=== PATIENT | female | born 1950 | race Caucasian/White ===

== ENCOUNTER 2016-10-30 19:46 | Emergency (ER) | payer MEDICARE, MEDICAID ==
[2016-10-30 21:30] LABS: HEMATOCRIT 39.1 % (35.0-47.0); HEMOGLOBIN 12.2 gm/dl (11.6-16.0); MEAN CELL VOLUME 94.9 fl (81-97); MEAN CORPUSCULAR HEMOGLOBIN 29.6 pg (27-33); MEAN CORPUSCULAR HGB CONC 31.2 g/dl (32-36); PLATELET COUNT 289 K/uL (130-400); RED BLOOD COUNT 4.12 M/uL (3.80-5.40); RED CELL DISTRIBUTION WIDTH 15.3 % (11.5-14.5); WHITE BLOOD COUNT W/O DIFF 11.7 K/uL (4.2-12.2)
[2016-10-30 21:45] LABS: ARTERIAL BLOOD GAS PCO2 46.5 mmHg (35-48)
[2016-10-30 21:50] LABS: ALLEN TEST PASS
[2016-10-30 22:00] LABS: ALB/GLOB RATIO 1.4 (1.1-1.8); ALBUMIN 4.7 gm/dL (3.5-5.0); ANION GAP 16.1 (7-16); BILIRUBIN,TOTAL 0.57 mg/dL (0.2-1.3); CARBON DIOXIDE 23.9 mmol/L (22-30); CREATININE 2.7 mg/dL (0.52-1.04)
[2016-10-30 22:12] LABS: TROPONIN I < 0.012 ng/mL (0.00-0.034)
[2016-10-30] MEDS ORDERED: GABAPENTIN 300 MG CAPSULE PO SCH (23:45)
[2016-10-30] MEDS ORDERED: QUETIAPINE FUMARATE 100 MG TABLET PO ONE (23:57)
[2016-10-31] MEDS ORDERED: ISOSORBIDE MONONITRATE 30 MG TAB.ER.24H PO SCH
--- NOTE | 2016-10-31 00:08 | Emergency Department Record ---
History of Present Illness - General Chief Complaint: Shortness of breath Stated Complaint: SWOLLEN FEET/LEGS,WEAK, Time Seen by Provider: 10/30/16 20:41 Source: Patient, Family Mode of Arrival: Ambulatory Limitations: No limitations - History of Present Illness Initial Comments: pt was brought in by daughter for increased confusion, sleeping all day, swelling of feet and feeling out of it. last time pt felt this way she had a low sodium. pt denies any changes in her meds and denies any new meds. pt wears 3l oxygen at all times because of pulmonary fibrosis MD Complaint: Cough, Shortness of breath Onset/Timin -: Days(s) Radiation: Back, Other Severity scale (1-10): 5 Quality: Stabbing Consistency: Constant Improves With: Rest Worsens With: Medication Known History Of: Congestive heart failure, COPD, Diabetes Associated Symptoms: Denies other symptoms Treatments Prior to Arrival: Bronchodilator, Oxygen - Related Data Home Oxygen Therapy: Yes Home Oxygen Amount: 3 Liters Home Medications Medication Instructions Recorded Confirmed Last Taken Aspirin 81 mg PO DAILY 10/13/13 10/31/16 1 Day Ago ~03/01/16 Bumetanide [Bumex] 3 mg PO DAILY 10/13/13 10/31/16 1 Day Ago ~03/01/16 Docusate Sodium [Colace] 100 mg PO BID 10/13/13 10/31/16 1 Day Ago ~03/01/16 Fluoxetine HCl [Prozac] 60 mg PO DAILY 10/13/13 10/31/16 1 Day Ago ~03/01/16 Folic Acid 1 mg PO DAILY 10/13/13 10/31/16 1 Day Ago ~03/01/16 Gabapentin [Neurontin] 200 mg PO BID 10/13/13 10/31/16 1 Day Ago ~03/01/16 Levothyroxine Sodium [Levoxyl] 125 mcg PO DAILY 10/13/13 10/31/16 1 Day Ago ~03/01/16 Polyethylene Glycol 3350 [Miralax] 17 gm PO DAILY 10/13/13 10/31/16 1 Day Ago ~03/01/16 Potassium Chloride [K-Tab ER] 30 meq PO DAILY 10/13/13 10/31/16 1 Day Ago ~03/01/16 Quetiapine Fumarate [Seroquel] 300 mg PO QHS 10/13/13 10/31/16 1 Day Ago ~03/01/16 Spironolactone [Aldactone] 25 mg PO TID 10/13/13 10/31/16 1 Day Ago ~03/01/16 Zolpidem Tartrate [Ambien] 12.5 mg PO QHS 10/13/13 10/31/16 1 Day Ago ~03/01/16 Hydrocodone/Acetaminophen [[place] 2 tab PO QID PRN 06/09/14 10/31/16 1 Day Ago 5-325 Tablet] ~03/01/16 Isosorbide Mononitrate [Imdur] 30 mg PO DAILY 06/09/14 10/31/16 1 Day Ago ~03/01/16 Midodrine HCl 2.5 mg PO TID 06/09/14 10/31/16 1 Day Ago ~03/01/16 Atorvastatin Calcium [Lipitor] 20 mg PO DAILY 06/26/14 10/31/16 1 Day Ago ~03/01/16 Omeprazole [Prilosec] 20 mg PO BID 06/26/14 10/31/16 1 Day Ago ~03/01/16 Carvedilol [Coreg] 3.125 mg PO BID 05/20/15 10/31/16 1 Day Ago ~03/01/16 Gabapentin [Neurontin] 400 mg PO DAILY 05/20/15 10/31/16 1 Day Ago ~03/01/16 Metoprolol Succinate [Toprol Xl] 50 mg PO DAILY 05/20/15 10/31/16 1 Day Ago ~03/01/16 Metformin HCl [Metformin HCl ER] 1,000 mg PO BID 03/02/16 10/31/16 1 Day Ago ~03/01/16 Fluticasone/Vilanterol [Breo 1 puff INH DAILY 10/31/16 10/31/16 Unknown Ellipta 200-25 Mcg INH] Umeclidinium [place] [Incruse 1 puff INH DAILY 10/31/16 10/31/16 Unknown Ellipta] Allergies Allergy/AdvReac Type Severity Reaction Status Date / Time codeine Allergy Unknown RASH Verified 10/30/16 20:00 latex AdvReac RASH Verified 10/30/16 20:00 Travel Screening - Travel/Exposure Within Last 30 Days Have you traveled within the last 30 days?: No - Travel/Exposure Within Last Year Have you traveled outside the [place] in the last year?: No - Additonal Travel Details Have you been exposed to anyone with a communicable illness?: No - Travel Symptoms Symptom Screening: None Review of Systems Reviewed: No additional complaints except as noted below Constitutional: Reports: As per HPI. Denies: Chills, Fever, Malaise, Night sweats, Weakness, Weight change Eyes: Reports: As per HPI. Denies: Eye discharge, Eye pain, Photophobia, Vision change ENT: Reports: As per HPI. Denies: Congestion, Dental pain, Ear pain, Epistaxis , Hearing loss, Throat pain Respiratory: Reports: As per HPI. Denies: Cough, Dyspnea, Hemoptysis, Stridor, Wheezes Cardiovascular: Reports: As per HPI. Denies: Arrhythmia, Chest pain, Dyspnea on exertion, Edema, Murmurs, Orthopnea, Palpitations, Paroxysmal nocturnal dyspnea, Rheumatic Fever, Syncope Endocrine: Reports: As per HPI. Denies: Fatigue, Heat or cold intolerance, Polydipsia, Polyuria Gastrointestinal: Reports: As per HPI. Denies: Abdominal pain, Constipation, Diarrhea, Hematemesis, Hematochezia, Melena, Nausea, Vomiting Genitourinary: Reports: As per HPI. Denies: Abnormal menses, Discharge, Dyspareunia, Dysuria, Frequency, Hematuria, Incontinence, Retention, Urgency Musculoskeletal: Reports: As per HPI. Denies: Arthralgia, Back pain, Gout, Joint swelling, Myalgia, Neck pain Skin: Reports: As per HPI. Denies: Bruising, Change in color, Change in hair/ nails, Lesions, Pruritus, Rash Neurological: Reports: As per HPI. Denies: Abnormal gait, Confusion, Headache, Numbness, Paresthesias, Seizure, Tingling, Tremors, Vertigo, Weakness Psychiatric: Reports: As per HPI. Denies: Anxiety, Auditory hallucinations, Depression, Homicidal thoughts, Suicidal thoughts, Visual hallucinations Hematological/Lymphatic: Reports: As per HPI. Denies: Anemia, Blood Clots, Easy bleeding, Easy bruising, Swollen glands Past Medical History - SOCIAL HISTORY Smoking Status: Former smoker Alcohol Use: Rare - RESPIRATORY Hx Respiratory Disorders: Yes Hx Bronchitis: Yes Hx COPD: Yes Comment:: pulmonary fibrosis - CARDIOVASCULAR Hx Cardio Disorders: Yes Hx Cardiac Cath: Yes Hx Chest Pain: Yes Hx CHF: Yes Hx Heart Attack: Yes (2 STENTS) - NEURO Hx Neuro Disorders: Yes Hx Dizziness: Yes Hx Seizures: Yes Hx TIA: Yes - GI Hx GI Disorders: Yes Hx Reflux: Yes Hx Wt Loss/Wt Gain: Yes (loss 12# past month) Comment:: Barretts esophagus - Hx Genitourinary Disorders: Yes Comment:: bladder sling - ENDOCRINE Hx Endocrine Disorders: Yes Hx Diabetes: Yes Hx Thyroid Disease: Yes (hypo) - MUSCULOSKELETAL Hx Musculoskeletal Disorders: Yes Hx Fibromyalgia: Yes - PSYCH Hx Psych Problems: Yes Hx Anxiety: Yes Hx Depression: Yes Comment:: Bipolar - HEMATOLOGY/ONCOLOGY Hx Hematology/Oncology Disorders: No Hx Blood Transfusions: No Family Medical History Any Significant Family History?: No Hx Anxiety: Mother Hx Cancer: Father, Mother Hx Depression: Mother Hx Diabetes: Mother Hx Heart Disease: Father Hx Resp Disorders: Father Hx Stroke: Mother Physical Exam - General General Appearance: Alert, Oriented x3, Cooperative, Mild distress - Head Head exam: Normal inspection - Eye Eye exam: Normal appearance, PERRL, EOMI Pupils: Normal accommodation - ENT ENT exam: Normal exam, Mucous membranes moist, Normal external ear exam, Normal orophraynx, TM's normal bilaterally Ear exam: Normal external inspection. negative: External canal tenderness Nasal Exam: Normal inspection. negative: Discharge, Sinus tenderness Mouth exam: Normal external inspection, Tongue normal Teeth exam: Normal inspection. negative: Dental caries Throat exam: Normal inspection. negative: Tonsillar erythema, Tonsillar exudate - Neck Neck exam: Normal inspection, Full ROM. negative: Tenderness - Respiratory Respiratory exam: Normal lung sounds bilaterally. negative: Respiratory distress - Cardiovascular Cardiovascular Exam: Normal rhythm, Normal heart sounds, Tachycardia - GI/Abdominal GI/Abdominal exam: Soft, Normal bowel sounds. negative: Tenderness - Rectal Rectal exam: Deferred - exam: Deferred - Extremities Extremities exam: Normal inspection, Full ROM, Normal capillary refill, Pedal edema. negative: Tenderness - Back Back exam: Reports: Normal inspection, Full ROM. Denies: Muscle spasm, Rash noted, Tenderness - Neurological Neurological exam: Alert, CN II-XII intact, Normal gait, Oriented X3 - Psychiatric Psychiatric exam: Normal affect, Normal mood - Skin Skin exam: Dry, Intact, Normal color, Warm Course Vital Signs 10/30/16 10/30/16 19:59 22:31 Temperature 98.4 F 98.5 F Pulse Rate [ 106 H 91 H Pulse Ox Probe] Respiratory 20 18 Rate Blood Pressure 121/63 95/68 [Left Arm] Pulse Ox 83 L 95 Medical Decision Making - Lab Data Result diagrams: 10/30/16 20:02 10/30/16 20:02 Lab Results 10/30/16 10/30/16 10/30/16 Range/Units 20:02 20:02 20:02 WBC 11.7 (4.2-12.2) K/uL RBC 4.12 (3.80-5.40) M/uL Hgb 12.2 (11.6-16.0) gm/dl Hct 39.1 (35.0-47.0) % MCV 94.9 (81-97) fl MCH 29.6 (27-33) pg MCHC 31.2 L (32-36) g/dl RDW 15.3 H (11.5-14.5) % Plt Count 289 (130-400) K/uL MPV 12.0 H (7.4-10.4) fl Neutrophils % 61.0 (47-80) % Eosinophils % Not Reportable Basophils % Not Reportable Lymphocytes 27.0 (16-45) % Monocytes 10.0 H (0-9) % Metamyelocytes 1.0 % ESR 34 H (0-30) mm/hr Eosinophil Count 1.0 (0-6) % Puncture Site pCO2 (35-48) mmHg pO2 (83-108) mmHg HCO3 Oxyhemoglobin ABG pH (7.35-7.45) ABG O2 Saturation ABG Base Excess Toan Test Carboxyhemoglobin Methemoglobin Actual Respiration Rate (10-18) /MIN FiO2 (21-21) % Sodium 134 L (136-145) mmol/L Potassium 4.4 (3.5-5.1) mmol/L Chloride 94 L (98-107) mmol/L Carbon Dioxide 23.9 (22-30) mmol/L Anion Gap 16.1 H (7-16) BUN 47 H (7-17) mg/dL Creatinine 2.7 H (0.52-1.04) mg/dL Estimated GFR 19 ml/min Random Glucose 183 H (70-110) mg/dL Calcium 9.2 (8.5-10.1) mg/dL Total Bilirubin 0.57 (0.2-1.3) mg/dL AST 23 (14-36) U/L ALT 27 (9-52) U/L Alkaline Phosphatase 115 (38-126) U/L Troponin I (0.00-0.034) ng/mL NT-Pro-B Natriuret Pep (<125) pg/mL Total Protein 8.0 (6.3-8.2) gm/dL Albumin 4.7 (3.5-5.0) gm/dL Globulin 3.3 (1.4-4.8) gm/dL Albumin/Globulin Ratio 1.4 (1.1-1.8) 10/30/16 10/30/16 Range/Units 20:02 21:39 WBC (4.2-12.2) K/uL RBC (3.80-5.40) M/uL Hgb (11.6-16.0) gm/dl Hct (35.0-47.0) % MCV (81-97) fl MCH (27-33) pg MCHC (32-36) g/dl RDW (11.5-14.5) % Plt Count (130-400) K/uL MPV (7.4-10.4) fl Neutrophils % (47-80) % Eosinophils % Basophils % Lymphocytes (16-45) % Monocytes (0-9) % Metamyelocytes % ESR (0-30) mm/hr Eosinophil Count (0-6) % Puncture Site Left wrist pCO2 46.5 (35-48) mmHg pO2 60.0 L (83-108) mmHg HCO3 Not Reportable Oxyhemoglobin Not Reportable ABG pH 7.40 (7.35-7.45) ABG O2 Saturation Not Reportable ABG Base Excess Not Reportable Toan Test Pass Carboxyhemoglobin Not Reportable Methemoglobin Not Reportable Actual Respiration Rate 28.0 H (10-18) /MIN FiO2 32.0 H (21-21) % Sodium (136-145) mmol/L Potassium (3.5-5.1) mmol/L Chloride (98-107) mmol/L Carbon Dioxide (22-30) mmol/L Anion Gap (7-16) BUN (7-17) mg/dL Creatinine (0.52-1.04) mg/dL Estimated GFR ml/min Random Glucose (70-110) mg/dL Calcium (8.5-10.1) mg/dL Total Bilirubin (0.2-1.3) mg/dL AST (14-36) U/L ALT (9-52) U/L Alkaline Phosphatase (38-126) U/L Troponin I < 0.012 (0.00-0.034) ng/mL NT-Pro-B Natriuret Pep 9200.00 H (<125) pg/mL Total Protein (6.3-8.2) gm/dL Albumin (3.5-5.0) gm/dL Globulin (1.4-4.8) gm/dL Albumin/Globulin Ratio (1.1-1.8) Disposition Disposition: Transfer Clinical Impression: Hypoxia Renal failure Qualifiers: Renal failure chronicity: acute Acute renal failure type: unspecified Qualified Code(s): N17.9 - Acute kidney failure, unspecified CHF (congestive heart failure) Qualifiers: Congestive heart failure type: unspecified congestive heart failure type Congestive heart failure chronicity: acute on chronic Qualified Code(s): I50.9 - Heart failure, unspecified Disposition: Acute Care Hospital Transfer Transfer To: [facility] Reason For Transfer: pts physician and nephrology Accepting Physician: awa Mckeon Discussed w/Accepting Physician: 01:36 Forms: Patient Portal Access
[2016-10-31 00:49] LABS: URINE APPEARANCE CLEAR; URINE BILIRUBIN NEGATIVE (NEGATIVE); URINE BLOOD NEGATIVE (NEGATIVE); URINE COLOR YELLOW; URINE GLUCOSE (UA) NEGATIVE (NEGATIVE); URINE KETONE NEGATIVE (NEGATIVE); URINE LEUKOCYTE ESTERASE NEGATIVE (NEGATIVE); URINE NITRITE NEGATIVE (NEGATIVE); URINE PROTEIN NEGATIVE (NEGATIVE); URINE UROBILINOGEN 0.2 E.U./dL (0.20 - 1.00)
--- NOTE | 2016-11-04 07:27 | RADIOLOGY REPORT ---
EXAM: CHEST, TWO VIEWS HISTORY: PATIENT HAS SWELLING OF LEGS, SLURRED SPEECH. TECHNIQUE: Two views of the chest were obtained. Comparison: Chest x-ray 12/23/05. FINDINGS: Prominence and ill definition of the pulmonary vascular markings consistent with mild to moderate interstitial pulmonary edema. The cardiac silhouette is moderately enlarged. The diaphragm and osseous structures are unremarkable. IMPRESSION: MILD TO MODERATE CHF. JOB NUMBER: [id number] MTDD
== END 2016-10-31 03:05 | disposition short-term general hospital (02) ==
LOC: ER 19:46
DX: N17.9 Acute kidney failure, unspecified (principal); I50.9 Heart failure, unspecified; J44.9 Chronic obstructive pulmonary disease, unspecified; E11.9 Type 2 diabetes mellitus without complications; Z79.84 Long term (current) use of oral hypoglycemic drugs; I25.2 Old myocardial infarction; Z87.891 Personal history of nicotine dependence
CPT/HCPCS: 36600; 71020; 80053; 81003; 82375; 82803; 83880; 84484; 85027; 85651; 99285

== ENCOUNTER 2017-01-12 11:59 | Inpatient (IN) | payer MEDICARE, MEDICAID ==
[2017-01-12] MEDS ORDERED: COLCHICINE 0.6 MG TABLET PO PRN (16:30)
[2017-01-12] MEDS ORDERED: NITROGLYCERIN 0.4MG SL TABLET #25 BTL SL PRN (16:32)
[2017-01-12] MEDS ORDERED: ALBUTEROL HFA 8 GM INHALER INH PRN (16:34)
[2017-01-12] MEDS ORDERED: PNEUM 13-VAL/PF 0.5 ML IM ONE (16:53)
[2017-01-12] MEDS: CLONAZEPAM 1MG TABLET PO SCH ×2 (16:59→21:15)
[2017-01-12] MEDS: GABAPENTIN 100 MG CAPSULE PO SCH ×2 (16:59→21:14)
[2017-01-12] MEDS: HYDROCODONE/APAP 10/325 TABLET PO PRN (16:59)
[2017-01-12] MEDS: GABAPENTIN 300 MG CAPSULE PO SCH ×2 (16:59→21:15)
[2017-01-12] MEDS: NOVOLOG FLEXPEN (INSULIN ASPART) 100 UNITS/ML SQ SCH (18:31)
[2017-01-12] MEDS: QUETIAPINE FUMARATE 100 MG TABLET PO SCH (21:13)
[2017-01-12] MEDS: FOLIC ACID 1 MG TABLET PO SCH (21:14)
[2017-01-12] MEDS: ATORVASTATIN 20 MG TABLET PO SCH (21:15)
[2017-01-12] MEDS: POTASSIUM CHLORIDE 10 MEQ TAB PO SCH (21:15)
[2017-01-12] MEDS: DOCUSATE SODIUM 100 MG CAPSULE PO SCH (21:15)
[2017-01-12] MEDS: POTASSIUM CHLORIDE 20 MEQ TABLET PO SCH (21:15)
[2017-01-12] MEDS: ZOLPIDEM TARTRATE 5 MG TABLET PO SCH (21:15)
[2017-01-12] MEDS: CARVEDILOL 3.125 MG TABLET PO SCH (21:15)
[2017-01-12] MEDS: ISOSORBIDE MONONITRATE 30 MG TAB.ER.24H PO SCH (21:17)
[2017-01-12] MEDS: ASPIRIN 81 MG TABEC PO SCH (21:20)
--- NOTE | 2017-01-13 05:24 | History & Physical ---
History of Present Illness - Date Date of Service for History & Physical: 01/13/17 - History of Present Illness Admitting Diagnosis: Deconditioning due to COPD exacerbation General - Cognitive Patterns Orientation: Oriented x3 - Communication Preferred Language?: Stateless Recycling Assistant Required: No Level of Education: [employer] Preferred Method of Learning: Seeing, Doing Comprehension Ability: No Impairment Able to Read: Yes Able to Write: Yes Select best description of speech pattern: Clear Speech Ability to express ideas and wants: Understood Understanding verbal content: Understands - Psychosocial Well-Being Usual Living Arrangement: Alone - Physical Functioning Activity Level: Up as tolerated Turning: Self ad chris ROM Ability: Within Normal Limits Assistive Devices: None Ambulation Ability: Needs Assist Bed Mobility: Needs Assist Transfer Ability: Needs Assist Bathing Ability: Needs Assist Personal Hygiene: Needs Assist Dressing Ability: Needs Assist Eating (Feeding) Ability: Independent Toileting Ability: Needs Assist Administer Own Medication: Needs Assist - Continence Bowel Pattern: Constipated, No Bowel Movement Bladder Pattern: Normal - Dental Status Unable to examine: No Broken or loosely fitting full or partial dentures: No No natural teeth or tooth fragment(s) (edentulous): Yes Abnormal mouth tissue (ulcers, masses, oral lesions, etc.): No Obvious or likely cavity or broken natural teeth: No Inflamed or bleeding gums or loose natural teeth: No Mouth/facial pain, discomfort or difficulty chewing: No - Nutrition Screening Poor oral intake > 1 week: No Unplanned weight loss in specified time frame: No Nutrition Support via tube feedings or parenteral nutrition: No Pressure Ulcer: No Significantly underweight define as BMI <18.5 kg/m2: No Albumin <2.5mg/dL: No Persistent nausea/vomiting/diarrhea >3 days: No Difficulty chewing/swallowing/mouth sores: No Admitting Diagnosis: Yes Nutrition Risk Score: Low Risk Past Medical History - SOCIAL HISTORY Smoking Status: Former smoker Alcohol Use: Rare - SURGICAL HISTORY Past Surgical History: hysterectomy. gallbladder. stents in subclavian - RESPIRATORY Hx Respiratory Disorders: Yes Hx Bronchitis: Yes Hx COPD: Yes Comment:: pulmonary fibrosis - CARDIOVASCULAR Hx Cardio Disorders: Yes Hx Cardiac Cath: Yes Hx Chest Pain: Yes Hx CHF: Yes Hx Heart Attack: Yes (2 STENTS) - NEURO Hx Neuro Disorders: Yes Hx Dizziness: Yes Hx Neuropathy: Yes (diabetic neuropathy in feet and hands) Hx Seizures: Yes Hx TIA: Yes - GI Hx GI Disorders: Yes Hx Reflux: Yes Comment:: Barretts esophagus - Hx Genitourinary Disorders: Yes Comment:: bladder sling - ENDOCRINE Hx Endocrine Disorders: Yes Hx Diabetes: Yes Hx Thyroid Disease: Yes (hypo) - MUSCULOSKELETAL Hx Musculoskeletal Disorders: Yes Hx Fibromyalgia: Yes Hx Gout: Yes - PSYCH Hx Psych Problems: Yes Hx Anxiety: Yes Hx Depression: Yes Comment:: Bipolar - HEMATOLOGY/ONCOLOGY Hx Hematology/Oncology Disorders: No Hx Blood Transfusions: No Family Medical History Any Significant Family History?: Yes Hx Anxiety: Mother Hx Cancer: Father, Mother Hx Depression: Mother Hx Diabetes: Mother Hx Heart Disease: Father Hx Resp Disorders: Father Hx Stroke: Mother H&P Meds/Allergies - Allergies Allergies: Allergies Allergy/AdvReac Type Severity Reaction Status Date / Time codeine Allergy Unknown RASH Verified 10/30/16 20:00 latex AdvReac RASH Verified 10/30/16 20:00 - Home Medications Home Medications Medication Instructions Recorded Confirmed Last Taken Aspirin 81 mg PO QHS 10/13/13 01/12/17 1 Day Ago ~03/01/16 Bumetanide [Bumex] 1 mg PO DAILY 10/13/13 01/12/17 1 Day Ago ~03/01/16 Docusate Sodium [Colace] 100 mg PO BID 10/13/13 01/12/17 1 Day Ago ~03/01/16 Fluoxetine HCl [Prozac] 60 mg PO DAILY 10/13/13 01/12/17 1 Day Ago ~03/01/16 Folic Acid 1 mg PO QHS 10/13/13 01/12/17 1 Day Ago ~03/01/16 Levothyroxine Sodium [Levoxyl] 125 mcg PO DAILY 10/13/13 01/12/17 1 Day Ago ~03/01/16 Potassium Chloride [K-Tab ER] 30 meq PO QHS 10/13/13 01/12/17 1 Day Ago ~03/01/16 Quetiapine Fumarate [Seroquel] 300 mg PO QHS 10/13/13 01/12/17 1 Day Ago ~03/01/16 Isosorbide Mononitrate [Imdur] 30 mg PO QHS 06/09/14 01/12/17 1 Day Ago ~03/01/16 Atorvastatin Calcium [Lipitor] 20 mg PO QHS 06/26/14 01/12/17 1 Day Ago ~03/01/16 Omeprazole [Prilosec] 20 mg PO BID 06/26/14 01/12/17 1 Day Ago ~03/01/16 Carvedilol [Coreg] 3.125 mg PO BID 05/20/15 01/12/17 1 Day Ago ~03/01/16 Gabapentin [Neurontin] 400 mg PO TID 05/20/15 01/12/17 1 Day Ago ~03/01/16 Umeclidinium [place] [Incruse 1 puff INH DAILY 10/31/16 01/12/17 Unknown Ellipta] Albuterol Sulfate [Proventil Hfa] 1 - 2 puff INH .EVERY 4-6 HOURS PRN 01/12/17 01/12/17 Unknown Cholecalciferol (Vitamin D3) 50,000 unit PO WEEKLY 01/12/17 01/12/17 Unknown [Vitamin D] Clonazepam [Klonopin] 1 mg PO TID 01/12/17 01/12/17 Unknown Colchicine [Colcrys] 0.6 mg PO BID 01/12/17 01/12/17 Unknown Eszopiclone [Lunesta] 1 mg PO QHS 01/12/17 01/12/17 Unknown Ferrous Sulfate [Iron] 325 mg PO DAILY 01/12/17 01/12/17 Unknown Fluticasone/Vilanterol [Breo 1 each IH DAILY 01/12/17 01/12/17 Unknown Ellipta 100-25 Mcg INH] Hydrocodone/Acetaminophen [[place] 1 tab PO Q6H PRN 01/12/17 01/12/17 Unknown 10mg/325mg] Linagliptin [Tradjenta] 5 mg PO DAILY 01/12/17 01/12/17 Unknown Methylphenidate HCl 5 mg PO BID 01/12/17 01/12/17 Unknown Nitroglycerin 0.4 mg SL ASDIR PRN 01/12/17 01/12/17 Unknown - Active Medications Active Medications: Current Medications Hydrocodone Bitart/Acetaminophen ([place] 10mg/325mg) 1 each PO Q6H PRN PRN Reason: Pain - General Last Admin: 01/12/17 16:59 Dose: 1 each Albuterol Sulfate (Ventolin Hfa) 2 puff INH Q4H PRN PRN Reason: SHORTNESS OF BREATH/WHEEZING Aspirin (Ecotrin (Ec)) 81 mg PO QHS [facility] Last Admin: 01/12/17 21:20 Dose: 81 mg Atorvastatin Calcium (Lipitor) 20 mg PO QHS [facility] Last Admin: 01/12/17 21:15 Dose: 20 mg Bumetanide (Bumex) 1 mg PO DAILY [facility] Carvedilol (Coreg) 3.125 mg PO BID [facility] Last Admin: 01/12/17 21:15 Dose: 3.125 mg Clonazepam (Klonopin) 1 mg PO TID [facility] Last Admin: 01/12/17 21:15 Dose: 1 mg Colchicine (Colcrys) 0.6 mg PO BID PRN PRN Reason: GOUT Docusate Sodium (Colace) 100 mg PO BID [facility] Last Admin: 01/12/17 21:15 Dose: 100 mg Ferrous Sulfate (Iron) 325 mg PO DAILY [facility] Fluoxetine HCl (Prozac) 60 mg PO DAILY [facility] Folic Acid () 1 mg PO QHS [facility] Last Admin: 01/12/17 21:14 Dose: 1 mg Gabapentin (Neurontin) 300 mg PO TID [facility] Last Admin: 01/12/17 21:15 Dose: 300 mg Gabapentin (Neurontin) 100 mg PO TID [facility] Last Admin: 01/12/17 21:14 Dose: 100 mg Insulin Aspart (Novolog Flexpen) 1 unit SQ TIDINS [facility] PRN Reason: Protocol Last Admin: 01/12/17 18:31 Dose: 6 unit Isosorbide Mononitrate (Imdur) 30 mg PO QHS [facility] Last Admin: 01/12/17 21:17 Dose: 30 mg Levothyroxine Sodium (Synthroid) 125 mcg PO 1200 [facility] Nitroglycerin (Nitrostat 0.4mg) 0.4 mg SL Q5MIN PRN PRN Reason: CHEST PAIN Pantoprazole Sodium (Protonix) 40 mg PO BIDAC [facility] Patient Own Med: (Methylphenidate 5 Mg) 1 each PO 0730,1130 [facility] Patient Own Med: Tradjenta ( Linagliptin) 5 Mg 1 each PO DAILY [facility] Patient Own Med: Ergocalciferol 50, 000 Iu 1 each PO WEEKLY [facility] Potassium Chloride (Klor-Con) 10 meq PO QHS [facility] Last Admin: 01/12/17 21:15 Dose: 10 meq Potassium Chloride (Klor-Con) 20 meq PO QHS [facility] Last Admin: 01/12/17 21:15 Dose: 20 meq Prednisone (Prednisone 20mg) 40 mg PO DAILYWM [facility] Stop: 01/13/17 08:01 Prednisone (Prednisone 20mg) 20 mg PO DAILYWM [facility] Stop: 01/19/17 08:01 Prednisone (Prednisone 10mg) 30 mg PO DAILYWM [facility] Stop: 01/16/17 08:01 Prednisone (Prednisone 10mg) 10 mg PO DAILYWM [facility] Stop: 01/22/17 08:01 Quetiapine Fumarate (Seroquel) 300 mg PO QHS [facility] Last Admin: 01/12/17 21:13 Dose: 300 mg Zolpidem Tartrate (Ambien) 5 mg PO QHS [facility] Last Admin: 01/12/17 21:15 Dose: 5 mg Physical Exam - Vital Signs Vital Signs: Vital Signs - Last 24 Hrs Temp Pulse Resp BP Pulse Ox 01/12/17 20:00 98.2 F 82 18 96/65 94 L 01/12/17 17:30 18 01/12/17 15:40 98.3 F 90 18 96/55 93 L H&P Results - Labs Labs Last 24 Hours: Laboratory Results - last 24 hr 01/12/17 01/12/17 17:16 21:16 POC Glucose 253 H 213 H Discharge Potential - Discharge Needs Community Services Used Prior to Admission: Home Health Aide Patient Discharge Plan Description: Return Home Community Services Needed at Discharge: Home Health Aide, Home Health Nurse, Occupational Therapy, Oxygen Therapy, Physical Therapy, Respiratory Therapy, Pathways to Better Health Plan - Swing Bed Certification Initial Certification Due: 01/12/17 14 Day Re-Cert Due: 01/26/17 44 Day Re-Cert Due: 02/25/17 74 Day Re-Cert Due: 03/27/17
[2017-01-13] MEDS ORDERED: PREDNISONE 20 MG TAB PO SCH (08:00)
--- NOTE | 2017-01-13 08:02 | Rehab Evaluation ---
Patient Information - Patient Information Diagnosis: deconditioning due to COPD exacerbation Ordered Treatment: OT Evaluate and Treat Status: Initial Evaluation Surgery: No History: Detail (Pt admitted on 01/12/17 to swing bed from [facility] Past Medical/Surgical Hx: PAST MEDICAL/SURGICAL HISTORY Past Surgical History hysterectomy gallbladder stents in subclavian PMH - Respiratory Hx Respiratory Disorders Yes Hx Bronchitis Yes Hx Chronic Obstructive Yes Pulmonary Disease (COPD) Comment: pulmonary fibrosis PMH - Cardiovascular Hx Cardiovascular Disorders Yes Hx Cardiac Catheterization Yes Hx Chest Pain Yes Hx Congestive Heart Failure Yes Hx Heart Attack Yes: 2 STENTS Hx Transient Ischemic Attacks Yes (TIA) PMH - Neuro Hx Neurological Disorders Yes Hx Dizziness Yes Hx Neuropathy Yes: diabetic neuropathy in feet and hands Hx Seizures Yes Hx Transient Ischemic Attacks Yes (TIA) PMH - GI Hx Gastrointestinal Disorders Yes Hx Gastroesophageal Reflux Yes Hx Weight Loss/Weight Gain Yes: loss 12# past month Comment: Barretts esophagus PMH - Hx Genitourinary Disorders Yes Comment: bladder sling PMH - Endocrine Hx Endocrine Disorders Yes Hx Diabetes Yes Hx Thyroid Disease Yes: hypo PMH - Musculoskeletal Hx Musculoskeletal Disorders Yes Hx Fibromyalgia Yes Hx Gout Yes PMH - Psych Hx Psychiatric Problems Yes Hx Anxiety Yes Hx Depression Yes Comment: Bipolar PMH - Hematology/Oncology Hx Hematology/Oncology No Disorders Premorbid Status: Detail (Pt lives alone in a 1st floor apartment, no steps to enter. She has a tub/shower combination with a seat and hand held shower, no grab bar. She usually sits to shower. She has a standard height toilet without grab bars. Prior to admission she ambulated without an assistive device. She has a person come to her house 3 x per week for house work, laundry and meals. She is Ind with preparing frozen meals. She has a 4 wheeled walker.) Social History: Detail (Pt has 2 daughers, 1 lives locally ([place]).) Precautions: [place], Fall, Other (Droplet precautions) - Time With Patient Total Time Spent With Patient (Min): 60 Treatment Procedures: Detail (OT eval low complexity) Subjective Information - Subjective Information Per Patient Objective Data - Pain Pain Present: Yes (5/10 pain in hands, feet and back) - Mental Status Patient Orientation: Oriented x3 - Visual Perception Appears within normal limits for therapeutic activities - ROM Not within normal limits (Robin UE AROM WNL except left shoulder flexion which is limited to approx. 90 degrees due to pre-existing injury.) - Strength/Tone Not within normal limits (Robin UE MMT 4/5 except left shoulder flexion which is graded 4-/5.) - Coordination Appears within normal limits for therapeutic activities - Bed Mobility Independent - Transfers Independent - Balance Balance Sitting: Good Balance Standing: Good - Sensation Intact (Pt reports robin hand pain due to neuropathy.) - Gait Detail (Pt ambulating in room Indly on 3 liters of oxygen.) - ADL's/IADL's Detail (Pt able to complete showering in sitting, doffing and donning of all clothing in sitting and standing and grooming activities Indly with 5.5 liters of oxygen. Pt was very short of breath but reports this is normal for her) Therapy Assessment - Therapy Assessment Detail (Pt presents with decreased endurance, increased shortness of breath and decreased UE strength needed for IADLS.) Problem List - Problem List Occupational Therapy Problem List: Detail (1. Decreased overall endurance needed for safe return home 2. Decreased UE strength needed for IADLs.) Goals - Goals Occupational Therapy Goals: 1. Pt will participate in UE strengthening and overall endurance activities to improve Ind and safety with IADLs. Prognosis - Prognosis Good Plan - Plan Occupational Therapy Plan: OT 2-4 times per week to address endurance, UE strength and IADLs to allow safe return home.
[2017-01-13] MEDS: NOVOLOG FLEXPEN (INSULIN ASPART) 100 UNITS/ML SQ SCH ×3 (08:13→17:57)
[2017-01-13] MEDS: UMECLIDINIUM BROMIDE (INCRUSE) 62.5MCG IH SCH (09:08)
[2017-01-13] MEDS ORDERED: BISACODYL 5 MG TABLET PO ONE (09:15)
[2017-01-13] MEDS: BREO (FLUTICASONE/VILANTEROL) 100MCG/25MCG INHALER INH SCH (09:16)
--- NOTE | 2017-01-13 09:26 | History & Physical ---
History of Present Illness - Date Date of Service for History & Physical: 01/13/17 - History of Present Illness Admitting Diagnosis: Deconditioning due to COPD exacerbation History of Present Illness: 66 yo female admitted to [facility] for weakness. PMHx of IPF, COPD, previous smoker ( 50 years, 2-3 ppd, quit 5 years ago), stage 1 diastolic heart failure, london' s esophagus, RLS, CAD, subclavian steal syndrome, DM type II, h/o TIA 20 years ago. Patient admitted 01/06-01/12 for acute hypoxic respiratory failure secondary to idiopathic pulmonary fibrosis and/or infectious process. Patient feels at baseline regarding her resp state. She's sating well on 3 L's O2 NC. Denies any SUZIE, sob, fever, chills, n/v, abd pain, blood in stool, dysuria, headache, dizziness or lightheadedness. + constipation. Lives independently here in [place]. Retired. One story home. no steps to get into the house. Has help around the house 3 days per week. PCP: Dr. Rojo Body Bumper: Dr. 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 Level of Education: [employer] Preferred Method of Learning: Seeing, Doing Comprehension Ability: No Impairment Able to Read: Yes Able to Write: Yes Select best description of speech pattern: Clear Speech Ability to express ideas and wants: Understood Understanding verbal content: Understands - Psychosocial Well-Being Usual Living Arrangement: Alone - Physical Functioning Activity Level: Up as tolerated Turning: Self ad chris ROM Ability: Within Normal Limits Assistive Devices: None Ambulation Ability: Needs Assist Bed Mobility: Needs Assist Transfer Ability: Needs Assist Bathing Ability: Needs Assist Personal Hygiene: Needs Assist Dressing Ability: Needs Assist Eating (Feeding) Ability: Independent Toileting Ability: Needs Assist Administer Own Medication: Needs Assist - Continence Bowel Pattern: Constipated, No Bowel Movement Bladder Pattern: Normal - Dental Status Unable to examine: No Broken or loosely fitting full or partial dentures: No No natural teeth or tooth fragment(s) (edentulous): Yes Abnormal mouth tissue (ulcers, masses, oral lesions, etc.): No Obvious or likely cavity or broken natural teeth: No Inflamed or bleeding gums or loose natural teeth: No Mouth/facial pain, discomfort or difficulty chewing: No - Nutrition Screening Poor oral intake > 1 week: No Unplanned weight loss in specified time frame: No Nutrition Support via tube feedings or parenteral nutrition: No Pressure Ulcer: No Significantly underweight define as BMI <18.5 kg/m2: No Albumin <2.5mg/dL: No Persistent nausea/vomiting/diarrhea >3 days: No Difficulty chewing/swallowing/mouth sores: No Admitting Diagnosis: Yes Nutrition Risk Score: Low Risk Review of Systems Constitutional: Reports: Weakness (with activity). Denies: Fever ENT: Denies: Congestion Respiratory: Reports: Cough (chronic). Denies: Stridor, Wheezes Cardiovascular: Denies: Chest pain, Edema Endocrine: Denies: Fatigue, Polydipsia Gastrointestinal: Reports: Constipation. Denies: Abdominal pain, Diarrhea, Nausea, Vomiting Genitourinary: Denies: Dysuria, Hematuria Musculoskeletal: Denies: Back pain Skin: Denies: Rash Neurological: Denies: Abnormal gait, Headache Past Medical History - SOCIAL HISTORY Smoking Status: Former smoker Alcohol Use: Rare - SURGICAL HISTORY Past Surgical History: hysterectomy. gallbladder. stents in subclavian - RESPIRATORY Hx Respiratory Disorders: Yes Hx Bronchitis: Yes Hx COPD: Yes Comment:: pulmonary fibrosis - CARDIOVASCULAR Hx Cardio Disorders: Yes Hx Cardiac Cath: Yes Hx Chest Pain: Yes Hx CHF: Yes Hx Heart Attack: Yes (2 STENTS) - NEURO Hx Neuro Disorders: Yes Hx Dizziness: Yes Hx Neuropathy: Yes (diabetic neuropathy in feet and hands) Hx Seizures: Yes Hx TIA: Yes - GI Hx GI Disorders: Yes Hx Reflux: Yes Comment:: Barretts esophagus - Hx Genitourinary Disorders: Yes Comment:: bladder sling - ENDOCRINE Hx Endocrine Disorders: Yes Hx Diabetes: Yes Hx Thyroid Disease: Yes (hypo) - MUSCULOSKELETAL Hx Musculoskeletal Disorders: Yes Hx Fibromyalgia: Yes Hx Gout: Yes - PSYCH Hx Psych Problems: Yes Hx Anxiety: Yes Hx Depression: Yes Comment:: Bipolar - HEMATOLOGY/ONCOLOGY Hx Hematology/Oncology Disorders: No Hx Blood Transfusions: No Family Medical History Any Significant Family History?: Yes Hx Anxiety: Mother Hx Cancer: Father, Mother Hx Depression: Mother Hx Diabetes: Mother Hx Heart Disease: Father Hx Resp Disorders: Father Hx Stroke: Mother H&P Meds/Allergies - Allergies Allergies: Allergies Allergy/AdvReac Type Severity Reaction Status Date / Time codeine Allergy Unknown RASH Verified 10/30/16 20:00 latex AdvReac RASH Verified 10/30/16 20:00 - Home Medications Home Medications Medication Instructions Recorded Confirmed Last Taken Aspirin 81 mg PO QHS 10/13/13 01/12/17 1 Day Ago ~03/01/16 Bumetanide [Bumex] 1 mg PO DAILY 10/13/13 01/12/17 1 Day Ago ~03/01/16 Docusate Sodium [Colace] 100 mg PO BID 10/13/13 01/12/17 1 Day Ago ~03/01/16 Fluoxetine HCl [Prozac] 60 mg PO DAILY 10/13/13 01/12/17 1 Day Ago ~03/01/16 Folic Acid 1 mg PO QHS 10/13/13 01/12/17 1 Day Ago ~03/01/16 Levothyroxine Sodium [Levoxyl] 125 mcg PO DAILY 10/13/13 01/12/17 1 Day Ago ~03/01/16 Potassium Chloride [K-Tab ER] 30 meq PO QHS 10/13/13 01/12/17 1 Day Ago ~03/01/16 Quetiapine Fumarate [Seroquel] 300 mg PO QHS 10/13/13 01/12/17 1 Day Ago ~03/01/16 Isosorbide Mononitrate [Imdur] 30 mg PO QHS 06/09/14 01/12/17 1 Day Ago ~03/01/16 Atorvastatin Calcium [Lipitor] 20 mg PO QHS 06/26/14 01/12/17 1 Day Ago ~03/01/16 Omeprazole [Prilosec] 20 mg PO BID 06/26/14 01/12/17 1 Day Ago ~03/01/16 Carvedilol [Coreg] 3.125 mg PO BID 05/20/15 01/12/17 1 Day Ago ~03/01/16 Gabapentin [Neurontin] 400 mg PO TID 05/20/15 01/12/17 1 Day Ago ~03/01/16 Umeclidinium [place] [Incruse 1 puff INH DAILY 10/31/16 01/12/17 Unknown Ellipta] Albuterol Sulfate [Proventil Hfa] 1 - 2 puff INH .EVERY 4-6 HOURS PRN 01/12/17 01/12/17 Unknown Cholecalciferol (Vitamin D3) 50,000 unit PO WEEKLY 01/12/17 01/12/17 Unknown [Vitamin D] Clonazepam [Klonopin] 1 mg PO TID 01/12/17 01/12/17 Unknown Colchicine [Colcrys] 0.6 mg PO BID 01/12/17 01/12/17 Unknown Eszopiclone [Lunesta] 1 mg PO QHS 01/12/17 01/12/17 Unknown Ferrous Sulfate [Iron] 325 mg PO DAILY 01/12/17 01/12/17 Unknown Fluticasone/Vilanterol [Breo 1 each IH DAILY 01/12/17 01/12/17 Unknown Ellipta 100-25 Mcg INH] Hydrocodone/Acetaminophen [[place] 1 tab PO Q6H PRN 01/12/17 01/12/17 Unknown 10mg/325mg] Linagliptin [Tradjenta] 5 mg PO DAILY 01/12/17 01/12/17 Unknown Methylphenidate HCl 5 mg PO BID 01/12/17 01/12/17 Unknown Nitroglycerin 0.4 mg SL ASDIR PRN 01/12/17 01/12/17 Unknown - Active Medications Active Medications: Current Medications Hydrocodone Bitart/Acetaminophen ([place] 10mg/325mg) 1 each PO Q6H PRN PRN Reason: Pain - General Last Admin: 01/12/17 16:59 Dose: 1 each Albuterol Sulfate (Ventolin Hfa) 2 puff INH Q4H PRN PRN Reason: SHORTNESS OF BREATH/WHEEZING Aspirin (Ecotrin (Ec)) 81 mg PO QHS [facility] Last Admin: 01/12/17 21:20 Dose: 81 mg Atorvastatin Calcium (Lipitor) 20 mg PO QHS [facility] Last Admin: 01/12/17 21:15 Dose: 20 mg Bumetanide (Bumex) 1 mg PO DAILY [facility] Carvedilol (Coreg) 3.125 mg PO BID [facility] Last Admin: 01/12/17 21:15 Dose: 3.125 mg Clonazepam (Klonopin) 1 mg PO TID [facility] Last Admin: 01/12/17 21:15 Dose: 1 mg Colchicine (Colcrys) 0.6 mg PO BID PRN PRN Reason: GOUT Docusate Sodium (Colace) 100 mg PO BID [facility] Last Admin: 01/12/17 21:15 Dose: 100 mg Ferrous Sulfate (Iron) 325 mg PO DAILY [facility] Fluoxetine HCl (Prozac) 60 mg PO DAILY [facility] Folic Acid () 1 mg PO QHS [facility] Last Admin: 01/12/17 21:14 Dose: 1 mg Gabapentin (Neurontin) 300 mg PO TID [facility] Last Admin: 01/12/17 21:15 Dose: 300 mg Gabapentin (Neurontin) 100 mg PO TID [facility] Last Admin: 01/12/17 21:14 Dose: 100 mg Insulin Aspart (Novolog Flexpen) 1 unit SQ TIDINS [facility] PRN Reason: Protocol Last Admin: 01/13/17 08:13 Dose: Not Given Isosorbide Mononitrate (Imdur) 30 mg PO QHS [facility] Last Admin: 01/12/17 21:17 Dose: 30 mg Levothyroxine Sodium (Synthroid) 125 mcg PO 1200 [facility] Nitroglycerin (Nitrostat 0.4mg) 0.4 mg SL Q5MIN PRN PRN Reason: CHEST PAIN Pantoprazole Sodium (Protonix) 40 mg PO BIDAC [facility] Patient Own Med: (Methylphenidate 5 Mg) 1 each PO 0730,1130 [facility] Patient Own Med: Tradjenta ( Linagliptin) 5 Mg 1 each PO DAILY [facility] Patient Own Med: Ergocalciferol 50, 000 Iu 1 each PO WEEKLY [facility] Potassium Chloride (Klor-Con) 10 meq PO QHS [facility] Last Admin: 01/12/17 21:15 Dose: 10 meq Potassium Chloride (Klor-Con) 20 meq PO QHS [facility] Last Admin: 01/12/17 21:15 Dose: 20 meq Prednisone (Prednisone 20mg) 20 mg PO DAILYWM [facility] Stop: 01/19/17 08:01 Prednisone (Prednisone 10mg) 30 mg PO DAILYWM [facility] Stop: 01/16/17 08:01 Prednisone (Prednisone 10mg) 10 mg PO DAILYWM [facility] Stop: 01/22/17 08:01 Quetiapine Fumarate (Seroquel) 300 mg PO QHS [facility] Last Admin: 01/12/17 21:13 Dose: 300 mg Zolpidem Tartrate (Ambien) 5 mg PO QHS [facility] Last Admin: 01/12/17 21:15 Dose: 5 mg Physical Exam - Vital Signs Vital Signs: Vital Signs - Last 24 Hrs Temp Pulse Resp BP Pulse Ox 01/12/17 20:00 98.2 F 82 18 96/65 94 L 01/12/17 17:30 18 01/12/17 15:40 98.3 F 90 18 96/55 93 L - General General Appearance: Alert, Oriented x3, Cooperative, No acute distress - Head Head exam: Atraumatic, Normocephalic - Eye Eye exam: Normal appearance - ENT ENT exam: Normal exam Ear exam: Normal external inspection Nasal Exam: Normal inspection - Neck Neck exam: Normal inspection, Full ROM - Respiratory Respiratory exam: Decreased breath sounds (throughout). negative: Accessory muscle use, Rales, Respiratory distress, Rhonchi, Wheezes - Cardiovascular Cardiovascular Exam: Regular rate, Normal rhythm, Normal heart sounds - GI/Abdominal GI/Abdominal exam: Soft - Rectal Rectal exam: Deferred - exam: Deferred - Extremities Extremities exam: negative: Pedal edema - Back Back exam: Reports: Normal inspection - Neurological Neurological exam: Alert - Psychiatric Psychiatric exam: negative: Agitated - Skin Skin exam: negative: Rash H&P Results - Labs Labs Last 24 Hours: Laboratory Results - last 24 hr 01/12/17 01/12/17 17:16 21:16 POC Glucose 253 H 213 H Discharge Potential - Discharge Needs Community Services Used Prior to Admission: Home Health Aide Patient Discharge Plan Description: Return Home Community Services Needed at Discharge: Home Health Aide, Home Health Nurse, Occupational Therapy, Oxygen Therapy, Physical Therapy, Respiratory Therapy, Pathways to Better Health Plan - Swing Bed Certification Initial Certification Due: 01/12/17 14 Day Re-Cert Due: 01/26/17 44 Day Re-Cert Due: 02/25/17 74 Day Re-Cert Due: 03/27/17 - Detailed Diagnosis and Plan (1) Weakness Current Visit: Yes Status: Acute Base Code: R53.1 - WEAKNESS Comment: 01/13 - PT/OT to help build physical strength and functioning (2) Type 2 diabetes mellitus Current Visit: Yes Status: Acute Base Code: E11.9 - TYPE 2 DIABETES MELLITUS WITHOUT COMPLICATIONS Comment: 01/13- continue tradjenta - accu checks achqhs - low sliding scale (3) Full code status Current Visit: Yes Status: Acute Base Code: Z78.9 - OTHER SPECIFIED HEALTH STATUS Comment: 01/13- pt is full code (4) CHF (congestive heart failure) Current Visit: No Status: Acute Qualifiers: Congestive heart failure type: unspecified congestive heart failure type Congestive heart failure chronicity: acute on chronic Qualified Code(s): I50.9 - Heart failure, unspecified Base Code: I50.9 - HEART FAILURE, UNSPECIFIED Comment: 01/13- continue bumex. monitor for fluid overload. monitor renal function. (5) COPD (chronic obstructive pulmonary disease) Current Visit: No Status: Acute Qualifiers: COPD type: emphysema Emphysema type: unspecified Qualified Code(s): J43.9 - Emphysema, unspecified Base Code: J44.9 - CHRONIC OBSTRUCTIVE PULMONARY DISEASE, UNSPECIFIED Comment : 01/13- continue home medications. supplemental O2. Rescue inh prn. complete steroid taper.
[2017-01-13] MEDS: DOCUSATE SODIUM 100 MG CAPSULE PO SCH ×2 (10:40→21:39)
[2017-01-13] MEDS: FERROUS SULFATE 325 MG TAB PO SCH (10:40)
[2017-01-13] MEDS: CLONAZEPAM 1MG TABLET PO SCH ×3 (10:40→21:39)
[2017-01-13] MEDS: BUMETANIDE 1 MG TABLET PO SCH (10:41)
[2017-01-13] MEDS: GABAPENTIN 300 MG CAPSULE PO SCH ×3 (10:41→21:38)
[2017-01-13] MEDS: GABAPENTIN 100 MG CAPSULE PO SCH ×3 (10:41→21:38)
[2017-01-13] MEDS: FLUOXETINE HCL 20 MG CAPSULE PO SCH (10:41)
[2017-01-13] MEDS: PATIENT OWN MED: METHYLPHENIDATE 5 MG PO SCH ×2 (10:42→13:45)
[2017-01-13] MEDS: CARVEDILOL 3.125 MG TABLET PO SCH ×2 (10:42→21:38)
[2017-01-13] MEDS: TRADJENTA 5 MG PO SCH ×2 (10:42→13:46)
[2017-01-13] MEDS: HYDROCODONE/APAP 10/325 TABLET PO PRN ×3 (10:44→21:53)
--- NOTE | 2017-01-13 10:48 | Rehab Evaluation ---
Patient Information - Patient Information Diagnosis: deconditioning due to COPD exacerbation Ordered Treatment: PT Evaluate and Treat Status: Initial Evaluation Surgery: No History: Detail (Pt admitted on 01/12/17 to swing bed from [facility].) Past Medical/Surgical Hx: PAST MEDICAL/SURGICAL HISTORY Past Surgical History hysterectomy gallbladder stents in subclavian PMH - Respiratory Hx Respiratory Disorders Yes Hx Bronchitis Yes Hx Chronic Obstructive Yes Pulmonary Disease (COPD) Comment: pulmonary fibrosis PMH - Cardiovascular Hx Cardiovascular Disorders Yes Hx Cardiac Catheterization Yes Hx Chest Pain Yes Hx Congestive Heart Failure Yes Hx Heart Attack Yes: 2 STENTS Hx Transient Ischemic Attacks Yes (TIA) PMH - Neuro Hx Neurological Disorders Yes Hx Dizziness Yes Hx Neuropathy Yes: diabetic neuropathy in feet and hands Hx Seizures Yes Hx Transient Ischemic Attacks Yes (TIA) PMH - GI Hx Gastrointestinal Disorders Yes Hx Gastroesophageal Reflux Yes Hx Weight Loss/Weight Gain Yes: loss 12# past month Comment: Barretts esophagus PMH - Hx Genitourinary Disorders Yes Comment: bladder sling PMH - Endocrine Hx Endocrine Disorders Yes Hx Diabetes Yes Hx Thyroid Disease Yes: hypo PMH - Musculoskeletal Hx Musculoskeletal Disorders Yes Hx Fibromyalgia Yes Hx Gout Yes PMH - Psych Hx Psychiatric Problems Yes Hx Anxiety Yes Hx Depression Yes Comment: Bipolar PMH - Hematology/Oncology Hx Hematology/Oncology No Disorders Premorbid Status: Detail (Pt lives alone in a 1st floor apartment, no steps to enter. She has a tub/shower combination with a seat and hand held shower, no grab bar. She usually sits to shower. She has a standard height toilet without grab bars. Prior to admission she ambulated without an assistive device. She has a person come to her house 3 x per week for house work, laundry and meals. She is Ind with preparing frozen meals. She has a 4 wheeled walker. The patient has used oxygen at home the last 3 monthe for activity.) Precautions: [place], Fall, Other (Droplet precautions) - Time With Patient Total Time Spent With Patient (Min): 25 Treatment Procedures: Detail (PT Evaluation) Subjective Information - Subjective Information Per Patient (The patient had complaints of lower back pain level 4 and bilateral hand and feet pain level 5. The patient complains of overall LE weakness. The patient reports she falls at least a few times a month.) Objective Data - Mental Status Patient Orientation: Oriented x3 - Visual Perception Appears within normal limits for therapeutic activities - ROM Within normal limits (LE AROM is WNL. Refer to OT for UE AROM.) - Strength/Tone Not within normal limits (The patient's LE streingth was as follows: hip flexors L 4-/5, R 4/5, hip abductors L 3+/5, R 4-/5, B hip adductors 4/5, hip extensors bilaterally 3+/5, bilateral quadriceps 4/5, hamstrings 4-/5, ankle musculature 4+/5.) - Bed Mobility Independent (independent supine to and from sit transfer.) - Transfers Independent (Independent/supervision for safety with sit to and from stand transfer.) - Balance Balance Sitting: Good Balance Standing: Fair (The patient's balance using the Tinetti Assessment Tool which is in the moderate for risk for falls category.) - Sensation Deficit (Decreased sensation both LE's due to nueropathy.) - Gait Detail (The patient ambulated without assistive device with contact guarding for safety 22 feet x 1 and 3 L of O2. The patient's O2 sat. level dropped from resting 92 to 83. The patient's level increased to normal level with pursed lip breathing after aproximately 4 minutes. The patient's gait pattern was characterized by slow guarded steps.) Therapy Assessment - Therapy Assessment Detail (The patient exhibits decreased strength, ability to complete prolonged physical activities and balance deficits ( moderate at risk for falling category ). Feel the patient will benefit from PT to return to previous functional level and increase strength and balance.) Patient Education - Patient Education Teaching Topic: Exercise/Activity (The patient was instucted in LE strengthening exercises to complete on the weekend.) Response: Return Demonstration Teaching Method: Discussion Teaching Recipient: Patient Barriers To Learning: Age Related Problem List - Problem List Physical Therapy Problem List: Detail (1) Decreased O2 sat. levels with physical activity. 2) Decreased LE strength. 3) Decreased balance. 4) Decreased ability to complete prolonged physical activity.) Goals - Goals Physical Therapy Goals: 1) The patient will be independent with all transfers. 2) The patient will ambulate with or without assistive device distances of 100 feet with minimal drop in O2 sat. level. 3) Increase LE strength 1/3 muscle grade. 4) The patient will tolerate 20 to 25 minutes of physicla activity with 1 to 2 rest periods. 5) Improve the patient's balance as measured by the Tinetti Balance Assessment Tool by 2 to 3 points. Prognosis - Prognosis Good (Good for return to home environment.) Plan - Plan Physical Therapy Plan: PT 1 -2 times a day for LE strengthening and balance exercises, gait training, transfer training and breathing exercises.
[2017-01-13] MEDS: LEVOTHYROXINE SODIUM 125 MCG TABLET PO SCH (13:44)
[2017-01-13] MEDS: PANTOPRAZOLE SODIUM 40 MG TABLET PO SCH (16:12)
[2017-01-13] MEDS: POTASSIUM CHLORIDE 10 MEQ TAB PO SCH (21:38)
[2017-01-13] MEDS: POTASSIUM CHLORIDE 20 MEQ TABLET PO SCH (21:38)
[2017-01-13] MEDS: QUETIAPINE FUMARATE 100 MG TABLET PO SCH (21:38)
[2017-01-13] MEDS: ISOSORBIDE MONONITRATE 30 MG TAB.ER.24H PO SCH (21:38)
[2017-01-13] MEDS: ZOLPIDEM TARTRATE 5 MG TABLET PO SCH (21:39)
[2017-01-13] MEDS: ASPIRIN 81 MG TABEC PO SCH (21:39)
[2017-01-13] MEDS: ATORVASTATIN 20 MG TABLET PO SCH (21:39)
[2017-01-13] MEDS: FOLIC ACID 1 MG TABLET PO SCH (21:39)
[2017-01-13] MEDS: MAGNESIUM HYDROXIDE 30 ML UDC PO PRN (22:54)
[2017-01-14 06:28] LABS: ANION GAP 6.4 (7-16); BLOOD UREA NITROGEN 34 mg/dL (7-17); CARBON DIOXIDE 30.6 mmol/L (22-30); CREATININE 0.8 mg/dL (0.52-1.04); EST GLOMERULAR FILTRATION RATE > 60 ml/min; GLUCOSE,RANDOM 121 mg/dL (70-110)
[2017-01-14] MEDS: PANTOPRAZOLE SODIUM 40 MG TABLET PO SCH ×2 (06:36→16:18)
[2017-01-14] MEDS: PATIENT OWN MED: METHYLPHENIDATE 5 MG PO SCH ×4 (06:36→11:33)
[2017-01-14] MEDS: HYDROCODONE/APAP 10/325 TABLET PO PRN ×3 (06:40→22:08)
[2017-01-14] MEDS: NOVOLOG FLEXPEN (INSULIN ASPART) 100 UNITS/ML SQ SCH ×3 (08:26→17:47)
[2017-01-14] MEDS: PREDNISONE 10 MG TAB PO SCH (08:30)
[2017-01-14] MEDS: UMECLIDINIUM BROMIDE (INCRUSE) 62.5MCG IH SCH (09:21)
[2017-01-14] MEDS: BREO (FLUTICASONE/VILANTEROL) 100MCG/25MCG INHALER INH SCH (09:21)
[2017-01-14] MEDS: BUMETANIDE 1 MG TABLET PO SCH (10:11)
[2017-01-14] MEDS: GABAPENTIN 300 MG CAPSULE PO SCH ×3 (10:11→22:04)
[2017-01-14] MEDS: DOCUSATE SODIUM 100 MG CAPSULE PO SCH ×2 (10:11→22:06)
[2017-01-14] MEDS: FLUOXETINE HCL 20 MG CAPSULE PO SCH (10:11)
[2017-01-14] MEDS: GABAPENTIN 100 MG CAPSULE PO SCH ×3 (10:12→22:06)
[2017-01-14] MEDS: CLONAZEPAM 1MG TABLET PO SCH ×3 (10:12→22:04)
[2017-01-14] MEDS: FERROUS SULFATE 325 MG TAB PO SCH (10:12)
[2017-01-14] MEDS: TRADJENTA 5 MG PO SCH (10:13)
[2017-01-14] MEDS: CARVEDILOL 3.125 MG TABLET PO SCH ×2 (10:13→22:05)
[2017-01-14] MEDS: LEVOTHYROXINE SODIUM 125 MCG TABLET PO SCH ×2 (10:22→11:33)
[2017-01-14] MEDS: MAGNESIUM HYDROXIDE 30 ML UDC PO PRN (22:03)
[2017-01-14] MEDS: FOLIC ACID 1 MG TABLET PO SCH (22:04)
[2017-01-14] MEDS: QUETIAPINE FUMARATE 100 MG TABLET PO SCH (22:04)
[2017-01-14] MEDS: ISOSORBIDE MONONITRATE 30 MG TAB.ER.24H PO SCH (22:04)
[2017-01-14] MEDS: POTASSIUM CHLORIDE 10 MEQ TAB PO SCH (22:04)
[2017-01-14] MEDS: ATORVASTATIN 20 MG TABLET PO SCH (22:04)
[2017-01-14] MEDS: POTASSIUM CHLORIDE 20 MEQ TABLET PO SCH (22:06)
[2017-01-14] MEDS: ASPIRIN 81 MG TABEC PO SCH (22:06)
[2017-01-14] MEDS: ZOLPIDEM TARTRATE 5 MG TABLET PO SCH (22:15)
[2017-01-15] MEDS: PATIENT OWN MED: METHYLPHENIDATE 5 MG PO SCH ×3 (06:43→12:30)
[2017-01-15] MEDS: PANTOPRAZOLE SODIUM 40 MG TABLET PO SCH ×2 (06:43→16:29)
[2017-01-15] MEDS: PREDNISONE 10 MG TAB PO SCH (08:44)
[2017-01-15] MEDS: NOVOLOG FLEXPEN (INSULIN ASPART) 100 UNITS/ML SQ SCH ×3 (08:45→18:07)
[2017-01-15] MEDS: MAGNESIUM HYDROXIDE 30 ML UDC PO PRN (09:56)
[2017-01-15] MEDS: BUMETANIDE 1 MG TABLET PO SCH (09:57)
[2017-01-15] MEDS: HYDROCODONE/APAP 10/325 TABLET PO PRN ×3 (09:57→21:41)
[2017-01-15] MEDS: CLONAZEPAM 1MG TABLET PO SCH ×3 (09:57→21:42)
[2017-01-15] MEDS: GABAPENTIN 300 MG CAPSULE PO SCH ×3 (09:57→21:41)
[2017-01-15] MEDS: FERROUS SULFATE 325 MG TAB PO SCH (09:57)
[2017-01-15] MEDS: GABAPENTIN 100 MG CAPSULE PO SCH ×3 (09:57→21:41)
[2017-01-15] MEDS: FLUOXETINE HCL 20 MG CAPSULE PO SCH (09:57)
[2017-01-15] MEDS: DOCUSATE SODIUM 100 MG CAPSULE PO SCH ×2 (09:58→21:41)
[2017-01-15] MEDS: TRADJENTA 5 MG PO SCH (09:58)
[2017-01-15] MEDS: CARVEDILOL 3.125 MG TABLET PO SCH ×3 (09:58→21:41)
[2017-01-15] MEDS: BREO (FLUTICASONE/VILANTEROL) 100MCG/25MCG INHALER INH SCH (10:05)
[2017-01-15] MEDS: UMECLIDINIUM BROMIDE (INCRUSE) 62.5MCG IH SCH (10:05)
[2017-01-15] MEDS: LEVOTHYROXINE SODIUM 125 MCG TABLET PO SCH (12:30)
[2017-01-15] MEDS ORDERED: MAGNESIUM CITRATE 296 ML BTL PO ONE (18:32)
[2017-01-15] MEDS: ISOSORBIDE MONONITRATE 30 MG TAB.ER.24H PO SCH (21:40)
[2017-01-15] MEDS: ATORVASTATIN 20 MG TABLET PO SCH (21:41)
[2017-01-15] MEDS: ZOLPIDEM TARTRATE 5 MG TABLET PO SCH (21:41)
[2017-01-15] MEDS: POTASSIUM CHLORIDE 10 MEQ TAB PO SCH (21:41)
[2017-01-15] MEDS: FOLIC ACID 1 MG TABLET PO SCH (21:41)
[2017-01-15] MEDS: ASPIRIN 81 MG TABEC PO SCH (21:42)
[2017-01-15] MEDS: QUETIAPINE FUMARATE 100 MG TABLET PO SCH (21:42)
[2017-01-15] MEDS: POTASSIUM CHLORIDE 20 MEQ TABLET PO SCH (21:42)
[2017-01-16] MEDS: PATIENT OWN MED: METHYLPHENIDATE 5 MG PO SCH ×2 (06:49→10:48)
[2017-01-16] MEDS: PANTOPRAZOLE SODIUM 40 MG TABLET PO SCH ×2 (06:49→16:05)
[2017-01-16] MEDS: NOVOLOG FLEXPEN (INSULIN ASPART) 100 UNITS/ML SQ SCH ×3 (08:14→17:20)
[2017-01-16] MEDS: PREDNISONE 10 MG TAB PO SCH (08:15)
[2017-01-16] MEDS: HYDROCODONE/APAP 10/325 TABLET PO PRN ×3 (08:25→21:52)
[2017-01-16] MEDS: BREO (FLUTICASONE/VILANTEROL) 100MCG/25MCG INHALER INH SCH (09:09)
[2017-01-16] MEDS: UMECLIDINIUM BROMIDE (INCRUSE) 62.5MCG IH SCH (09:09)
[2017-01-16] MEDS ORDERED: ERGOCALCIFEROL PO SCH (10:00)
[2017-01-16] MEDS: FLUOXETINE HCL 20 MG CAPSULE PO SCH (10:47)
[2017-01-16] MEDS: BUMETANIDE 1 MG TABLET PO SCH (10:47)
[2017-01-16] MEDS: FERROUS SULFATE 325 MG TAB PO SCH (10:47)
[2017-01-16] MEDS: LEVOTHYROXINE SODIUM 125 MCG TABLET PO SCH ×2 (10:47→12:38)
[2017-01-16] MEDS: CLONAZEPAM 1MG TABLET PO SCH ×3 (10:47→21:57)
[2017-01-16] MEDS: DOCUSATE SODIUM 100 MG CAPSULE PO SCH ×2 (10:47→21:54)
[2017-01-16] MEDS: GABAPENTIN 100 MG CAPSULE PO SCH ×3 (10:47→21:54)
[2017-01-16] MEDS: GABAPENTIN 300 MG CAPSULE PO SCH ×3 (10:47→21:56)
[2017-01-16] MEDS: TRADJENTA 5 MG PO SCH (10:48)
[2017-01-16] MEDS: CARVEDILOL 3.125 MG TABLET PO SCH ×2 (10:48→21:57)
--- NOTE | 2017-01-16 11:11 | Physical Therapy Tx Note ---
Physical Therapy Tx Note - Treatment Note Tolerated: Good Total Time Spent With Patient: 35 Physical Therapy Tx Note: Detail (The patient was in bed when PT arrived. The patient ambulated without device with 4L of O2 a distance of 37 feet and completed a tub transfer with supervision for safety and use of grab bars and sink. The patient's O2 sat level dropped to 62 and she sat to rest. The patient recovered to O2 sat. level of 92 after 3 minutes. The patient requires maximal verbal cues for pursed lip breathing. The patient ambulated back to her room. The patient completed balance exercises with standing with varying bases of support. Increased postural sway is noted with Romberg position and narrower base of support. The patient was instructed in calf stretching due to complaints of cramping in gastrocnemius. The patient also completed the following LE strengthening exercises: seated with the red theraband hip abduction, LAQ, hamstring curls, marching all x 15 reps and hip adductor squeezes x 15 reps. The patient's O2 sat. level dropped into the 80's with exercises. The patient is able to raise her O2 sat. level with deep breathing . Discussed at length with patient safety precautions to follow for fall prevention at home. Also discussed pursed lip breathing techniques to use with mobility and exercise. Recommended with patient to use walker with seat when going out so she can sit down when lightheaded.) Physical Therapy Problem List: Detail (1) Decreased O2 sat. levels with physical activity. 2) Decreased LE strength. 3) Decreased balance. 4) Decreased ability to complete prolonged physical activity.) Physical Therapy Goals: 1) The patient will be independent with all transfers. 2) The patient will ambulate with or without assistive device distances of 100 feet with minimal drop in O2 sat. level. 3) Increase LE strength 1/3 muscle grade. 4) The patient will tolerate 20 to 25 minutes of physicla activity with 1 to 2 rest periods. 5) Improve the patient's balance as measured by the Tinetti Balance Assessment Tool by 2 to 3 points. Physical Therapy Plan: PT 1 -2 times a day for LE strengthening and balance exercises, gait training, transfer training and breathing exercises.
--- NOTE | 2017-01-16 14:35 | Occupational Therapy Tx Note ---
Occupational Therapy Tx Note - Treatment Note Tolerated: Good Total Time Spent With Patient: 30 (ther activity) Occupational Therapy Treatment Note: Detail (S: Pt at EOB visiting with daughter. O: Reviewed pursed lip and diaphramatic breathing, pt will require cont. teaching. Amb to rehab gym with 4 wheeled walker and on 4 liters of oxygen with verbal cues for breathing technique and several very short rest breaks. O2 sats were in the 80s throughout with no c/o lightheadedness. Pt completed noman UE reaching overhead/resistive pinch activity in sitting with cues for breathing and she was able to maintain O2 sats in the low 90s throughout UE activity. Pt amb back to room with 4 wheeled walker and 4 liters oxygen with continued cues for breathing. A: Pt able to maintain oxygen levels in the 80s and 90s with continuous verbal cueing for breathing techniques.) Occupational Therapy Problem List: Detail (1. Decreased overall endurance needed for safe return home 2. Decreased UE strength needed for IADLs.) Occupational Therapy Goals: 1. Pt will participate in UE strengthening and overall endurance activities to improve Ind and safety with IADLs. Prognosis: Good Occupational Therapy Plan: OT 2-4 times per week to address endurance, UE strength and IADLs to allow safe return home.
--- NOTE | 2017-01-16 14:50 | Physical Therapy Tx Note ---
Physical Therapy Tx Note - Treatment Note Tolerated: Good Total Time Spent With Patient: 25 Physical Therapy Tx Note: Detail (The patient was in chair when PT arrived. The patient ambulated on 3 steps with use of one railing with supervision/CG for safety only. The patient ambulated with wheeled walker a distance of 80 feet x 1 independently . The patient completed the following balance exercises : standing with varying bases of support, standing squats x 10 reps, hip abduction x 10 reps, seated hip adduction, red T-band hip abduction, LAQ, hamstring curls all x 10 reps. The patient tolerated treatment well.) Physical Therapy Problem List: Detail (1) Decreased O2 sat. levels with physical activity. 2) Decreased LE strength. 3) Decreased balance. 4) Decreased ability to complete prolonged physical activity.) Physical Therapy Goals: 1) The patient will be independent with all transfers. 2) The patient will ambulate with or without assistive device distances of 100 feet with minimal drop in O2 sat. level. 3) Increase LE strength 1/3 muscle grade. 4) The patient will tolerate 20 to 25 minutes of physicla activity with 1 to 2 rest periods. 5) Improve the patient's balance as measured by the Tinetti Balance Assessment Tool by 2 to 3 points. Physical Therapy Plan: PT 1 -2 times a day for LE strengthening and balance exercises, gait training, transfer training and breathing exercises.
[2017-01-16] MEDS: POTASSIUM CHLORIDE 20 MEQ TABLET PO SCH (21:53)
[2017-01-16] MEDS: POTASSIUM CHLORIDE 10 MEQ TAB PO SCH (21:54)
[2017-01-16] MEDS: ASPIRIN 81 MG TABEC PO SCH (21:55)
[2017-01-16] MEDS: FOLIC ACID 1 MG TABLET PO SCH (21:56)
[2017-01-16] MEDS: ATORVASTATIN 20 MG TABLET PO SCH (21:57)
[2017-01-16] MEDS: QUETIAPINE FUMARATE 100 MG TABLET PO SCH (21:58)
[2017-01-16] MEDS: ISOSORBIDE MONONITRATE 30 MG TAB.ER.24H PO SCH (21:58)
[2017-01-16] MEDS: ZOLPIDEM TARTRATE 5 MG TABLET PO SCH (21:59)
[2017-01-17] MEDS: PANTOPRAZOLE SODIUM 40 MG TABLET PO SCH ×2 (07:01→17:26)
[2017-01-17] MEDS: NOVOLOG FLEXPEN (INSULIN ASPART) 100 UNITS/ML SQ SCH ×3 (08:17→17:44)
[2017-01-17] MEDS: PATIENT OWN MED: METHYLPHENIDATE 5 MG PO SCH ×2 (08:18→12:04)
[2017-01-17] MEDS: PREDNISONE 20 MG TAB PO SCH (08:20)
[2017-01-17] MEDS: HYDROCODONE/APAP 10/325 TABLET PO PRN ×3 (08:25→21:54)
[2017-01-17] MEDS: BREO (FLUTICASONE/VILANTEROL) 100MCG/25MCG INHALER INH SCH (09:50)
[2017-01-17] MEDS: UMECLIDINIUM BROMIDE (INCRUSE) 62.5MCG IH SCH (09:51)
--- NOTE | 2017-01-17 10:43 | Occupational Therapy Tx Note ---
Occupational Therapy Tx Note - Treatment Note Tolerated: Good Total Time Spent With Patient: 30 (ther activity) Occupational Therapy Treatment Note: Detail (S: Pt feeling tired today, did not sleep well. O: Sit to stand and amb to rehab gym with 4 wheeled walker and 5 liter of oxygen. Oxygen sats were in the 80s during ambulation. Pt completed noman UE reaching overhead/resistive pinch activity with improved shoulder strength and oxygen sats in the 90s to 100 percent. Pt reports less left shoulder discomfort and increased strength in UEs today. Amb back to room with 4 wheeled walker and 5 liter of oxygen. A: Improve oxygen sats with UE activity, improved breathing technique but cont. to require cues) Occupational Therapy Problem List: Detail (1. Decreased overall endurance needed for safe return home 2. Decreased UE strength needed for IADLs.) Occupational Therapy Goals: 1. Pt will participate in UE strengthening and overall endurance activities to improve Ind and safety with IADLs. Prognosis: Good Occupational Therapy Plan: OT 2-4 times per week to address endurance, UE strength and IADLs to allow safe return home.
[2017-01-17] MEDS: FERROUS SULFATE 325 MG TAB PO SCH (10:58)
[2017-01-17] MEDS: FLUOXETINE HCL 20 MG CAPSULE PO SCH (10:58)
[2017-01-17] MEDS: BUMETANIDE 1 MG TABLET PO SCH (10:58)
[2017-01-17] MEDS: CARVEDILOL 3.125 MG TABLET PO SCH ×2 (10:58→21:53)
[2017-01-17] MEDS: DOCUSATE SODIUM 100 MG CAPSULE PO SCH ×2 (10:58→21:53)
[2017-01-17] MEDS: CLONAZEPAM 1MG TABLET PO SCH ×3 (10:58→21:54)
[2017-01-17] MEDS: GABAPENTIN 100 MG CAPSULE PO SCH ×3 (12:01→21:55)
[2017-01-17] MEDS: GABAPENTIN 300 MG CAPSULE PO SCH ×3 (12:01→21:55)
[2017-01-17] MEDS: TRADJENTA 5 MG PO SCH (12:05)
[2017-01-17] MEDS: LEVOTHYROXINE SODIUM 125 MCG TABLET PO SCH (12:06)
--- NOTE | 2017-01-17 13:20 | Physical Therapy Tx Note ---
Physical Therapy Tx Note - Treatment Note Tolerated: Fair Physical Therapy Tx Note: Detail (The patient fell on nursing floor before lunch and has complaints of bilateral lower back pain L3 to L5 region. The patient refused PT this pm, however MHP were placed on lumbar region x 15 minutes with patient in a supine position. The patient tolerated treatment well. ) Physical Therapy Problem List: Detail (1) Decreased O2 sat. levels with physical activity. 2) Decreased LE strength. 3) Decreased balance. 4) Decreased ability to complete prolonged physical activity.) Physical Therapy Goals: 1) The patient will be independent with all transfers. 2) The patient will ambulate with or without assistive device distances of 100 feet with minimal drop in O2 sat. level. 3) Increase LE strength 1/3 muscle grade. 4) The patient will tolerate 20 to 25 minutes of physicla activity with 1 to 2 rest periods. 5) Improve the patient's balance as measured by the Tinetti Balance Assessment Tool by 2 to 3 points. Physical Therapy Plan: PT 1 -2 times a day for LE strengthening and balance exercises, gait training, transfer training and breathing exercises.
[2017-01-17] MEDS: IBUPROFEN 400 MG TABLET PO PRN (17:12)
[2017-01-17] MEDS ORDERED: OXYCODONE HCL/APAP 5MG/325MG TABLET PO ONE (18:54)
[2017-01-17] MEDS: ZOLPIDEM TARTRATE 5 MG TABLET PO SCH (21:52)
[2017-01-17] MEDS: FOLIC ACID 1 MG TABLET PO SCH (21:53)
[2017-01-17] MEDS: ASPIRIN 81 MG TABEC PO SCH (21:53)
[2017-01-17] MEDS: POTASSIUM CHLORIDE 20 MEQ TABLET PO SCH (21:54)
[2017-01-17] MEDS: ATORVASTATIN 20 MG TABLET PO SCH (21:55)
[2017-01-17] MEDS: QUETIAPINE FUMARATE 100 MG TABLET PO SCH (21:55)
[2017-01-17] MEDS: POTASSIUM CHLORIDE 10 MEQ TAB PO SCH (21:55)
[2017-01-17] MEDS: ISOSORBIDE MONONITRATE 30 MG TAB.ER.24H PO SCH (21:57)
[2017-01-18] MEDS: HYDROCODONE/APAP 10/325 TABLET PO PRN (06:30)
[2017-01-18] MEDS: IBUPROFEN 400 MG TABLET PO PRN ×3 (06:30→20:01)
[2017-01-18] MEDS: PANTOPRAZOLE SODIUM 40 MG TABLET PO SCH ×2 (06:53→17:33)
[2017-01-18] MEDS: PATIENT OWN MED: METHYLPHENIDATE 5 MG PO SCH ×2 (06:54→10:42)
[2017-01-18] MEDS: NOVOLOG FLEXPEN (INSULIN ASPART) 100 UNITS/ML SQ SCH ×3 (08:30→17:34)
[2017-01-18] MEDS: PREDNISONE 20 MG TAB PO SCH (08:32)
--- NOTE | 2017-01-18 10:06 | Physician Progress Note ---
Subjective - Date Date of Progress Note: 01/18/17 - Admitting Diagnosis Diagnosis: Deconditioning due to COPD exacerbation - Subjective Events since last encounter: Care conference today with daughter in attendance. Did have an unwitnessed fall yesterday. Patient reports attempted to walk to BR independently without walker to take care of dirty clothes after shower. Floor was damp, was not wearing any footwear and slipped on damp floor. Fell against wall and directly onto buttocks. No obvious bruising or redness to back noted. Moves all extremities without difficulty. Did not hit head. Has been complaining of increased back pain since fall, norco not helping for pain. Percocet ordered x 1 last night with significant improvement in overall back pain that has been chronic in nature. Therapy continues to work with her for balance and strength with continued challenge of dypnea and hypoxic episodes nearing 80% with activity. OT has been working with her for breathing techniques including diaphragmatic and pursed lip breathing. Does perform simple ADls independently. Blood sugars have been controlled. Weight has been fluctuating and continues to be on fluid restriction. Nursing Care Plan Problem List Activity Intolerance (Swing Bed) Start: 01/12/17 16: 53 Freq: Status: Active Created 01/12/17 16:53 [facility] (Rec: 01/12/17 16:53 [email or web address]) Anxiety Start: 01/12/17 16: 54 Freq: Status: Active Created 01/12/17 16:54 [facility] (Rec: 01/12/17 16:54 [id number]) High Risk: Altered Glucose Metabolism Start: 01/12/17 16: 54 Freq: Status: Active Created 01/12/17 16:54 [facility] (Rec: 01/12/17 16:54 [email or web address]) High Risk: Impaired Skin Integrity Start: 01/12/17 16: 54 Freq: Status: Active Created 01/12/17 16:54 [facility] (Rec: 01/12/17 16:54 [email or web address]) Ineffective Breathing Pattern Start: 01/12/17 16: 54 Freq: Status: Active Created 01/12/17 16:54 [facility] (Rec: 01/12/17 16:54 [id number]) Knowledge Deficit (Swing Bed) Start: 01/12/17 16: 53 Freq: Status: Active Created 01/12/17 16:53 [facility] (Rec: 01/12/17 16:53 [id number]) Knowledge Deficit: Diabetes Mellitus Start: 01/12/17 16: 54 Freq: Status: Active Created 01/12/17 16:54 [facility] (Rec: 01/12/17 16:54 [id number]) Pain (Swing Bed) Start: 01/12/17 16: 53 Freq: Status: Active Created 01/12/17 16:53 [facility] (Rec: 01/12/17 16:53 [id number]) General - Cognitive Patterns Speech: Soft Thought Process: Intact Thought Content: Normal - Communication Select best description of speech pattern: Clear Speech Ability to express ideas and wants: Understood Understanding verbal content: Understands - Mood and Behavior Patterns Appearance: Well Groomed, Disheveled Mood: Normal Attitude: Cooperative Motor Activity: Calm Affect: Appropriate - Physical Functioning Activity Level: Up with assist x1 Turning: Self ad chris ROM Ability: Moves all extremities Assistive Devices: 2 Wheel Walker Ambulation Ability: Independent Bed Mobility: Independent Transfer Ability: Needs Assist Bathing Ability: Needs Assist Personal Hygiene: Needs Assist Dressing Ability: Needs Assist Eating (Feeding) Ability: Independent Toileting Ability: Independent Administer Own Medication: Independent - Continence Bowel Pattern: Normal for Patient Bladder Pattern: Normal Meds/Allergies - Allergies Allergies Allergy/AdvReac Type Severity Reaction Status Date / Time codeine Allergy Unknown RASH Verified 10/30/16 20:00 latex AdvReac RASH Verified 10/30/16 20:00 - Active Medications Current Medications Hydrocodone Bitart/Acetaminophen (Cameron 10mg/325mg) 1 each PO Q6H PRN PRN Reason: Pain - General Last Admin: 01/18/17 06:30 Dose: 1 each Albuterol Sulfate (Ventolin Hfa) 2 puff INH Q4H PRN PRN Reason: SHORTNESS OF BREATH/WHEEZING Last Admin: 01/13/17 20:20 Dose: 2 puff Aspirin (Ecotrin (Ec)) 81 mg PO QHS [facility] Last Admin: 01/17/17 21:53 Dose: 81 mg Atorvastatin Calcium (Lipitor) 20 mg PO QHS [facility] Last Admin: 01/17/17 21:55 Dose: 20 mg Bumetanide (Bumex) 1 mg PO DAILY [facility] Last Admin: 01/17/17 10:58 Dose: 1 mg Carvedilol (Coreg) 3.125 mg PO BID [facility] Last Admin: 01/17/17 21:53 Dose: 3.125 mg Clonazepam (Klonopin) 1 mg PO TID [facility] Last Admin: 01/17/17 21:54 Dose: 1 mg Colchicine (Colcrys) 0.6 mg PO BID PRN PRN Reason: GOUT Docusate Sodium (Colace) 100 mg PO BID [facility] Last Admin: 01/17/17 21:53 Dose: 100 mg Ferrous Sulfate (Iron) 325 mg PO DAILY [facility] Last Admin: 01/17/17 10:58 Dose: 325 mg Fluoxetine HCl (Prozac) 60 mg PO DAILY [facility] Last Admin: 01/17/17 10:58 Dose: 60 mg Folic Acid () 1 mg PO QHS [facility] Last Admin: 01/17/17 21:53 Dose: 1 mg Gabapentin (Neurontin) 300 mg PO TID [facility] Last Admin: 01/17/17 21:55 Dose: 300 mg Gabapentin (Neurontin) 100 mg PO TID [facility] Last Admin: 01/17/17 21:55 Dose: 100 mg Ibuprofen (Motrin 400mg) 800 mg PO Q8H PRN PRN Reason: Pain - General Last Admin: 01/18/17 06:30 Dose: 800 mg Insulin Aspart (Novolog Flexpen) 1 unit SQ TIDINS [facility] PRN Reason: Protocol Last Admin: 01/18/17 08:30 Dose: 2 unit Isosorbide Mononitrate (Imdur) 30 mg PO QHS [facility] Last Admin: 01/17/17 21:57 Dose: 30 mg Levothyroxine Sodium (Synthroid) 125 mcg PO 1200 [facility] Last Admin: 01/17/17 12:06 Dose: 125 mcg Magnesium Hydroxide (Milk Of Magnesium) 30 ml PO DAILY PRN PRN Reason: INDIGESTION Last Admin: 01/15/17 09:56 Dose: 30 ml Nitroglycerin (Nitrostat 0.4mg) 0.4 mg SL Q5MIN PRN PRN Reason: CHEST PAIN Pantoprazole Sodium (Protonix) 40 mg PO BIDAC [facility] Last Admin: 01/18/17 06:53 Dose: 40 mg Patient Own Med: (Methylphenidate 5 Mg) 1 each PO 0730,1130 [facility] Last Admin: 01/18/17 06:54 Dose: 1 each Patient Own Med: Tradjenta ( Linagliptin) 5 Mg 1 each PO DAILY [facility] Last Admin: 01/17/17 12:05 Dose: 1 each Patient Own Med: Ergocalciferol 50, 000 Iu 1 each PO WEEKLY [facility] Last Admin: 01/16/17 10:48 Dose: 1 each Potassium Chloride (Klor-Con) 10 meq PO QHS [facility] Last Admin: 01/17/17 21:55 Dose: 10 meq Potassium Chloride (Klor-Con) 20 meq PO QHS [facility] Last Admin: 01/17/17 21:54 Dose: 20 meq Prednisone (Prednisone 20mg) 20 mg PO DAILYWM [facility] Stop: 01/19/17 08:01 Last Admin: 01/18/17 08:32 Dose: 20 mg Prednisone (Prednisone 10mg) 10 mg PO DAILYWM [facility] Stop: 01/22/17 08:01 Quetiapine Fumarate (Seroquel) 300 mg PO QHS [facility] Last Admin: 01/17/17 21:55 Dose: 300 mg Zolpidem Tartrate (Ambien) 5 mg PO QHS [facility] Last Admin: 01/17/17 21:52 Dose: 5 mg Objective - Vital Signs Vital Signs: Vital Signs - Last 24 Hrs Temp Pulse Resp BP Pulse Ox 01/18/17 08:00 97.6 F 79 18 91 L 01/17/17 20:00 98.2 F 74 20 104/60 97 01/17/17 11:55 98.3 F 84 18 114/66 94 L - General General Appearance: Alert, Oriented x3, Cooperative, No acute distress - Head Head exam: Atraumatic, Normocephalic - Eye Eye exam: Normal appearance - ENT ENT exam: Normal exam Ear exam: Normal external inspection Nasal Exam: Normal inspection - Neck Neck exam: Normal inspection, Full ROM - Respiratory Respiratory exam: Decreased breath sounds (throughout), Other (mild conversational dyspnea at baseline). negative: Accessory muscle use, Rales, Respiratory distress, Rhonchi, Wheezes - Cardiovascular Cardiovascular Exam: Regular rate, Normal rhythm, Normal heart sounds Peripheral Pulses: 2+: Dorsalis Pedis (R), Dorsalis Pedis (L) - GI/Abdominal GI/Abdominal exam: Soft, Normal bowel sounds - Rectal Rectal exam: Deferred - exam: Deferred - Extremities Extremities exam: negative: Pedal edema - Back Back exam: Reports: Normal inspection - Neurological Neurological exam: Alert - Psychiatric Psychiatric exam: Normal affect, Normal mood. negative: Agitated - Skin Skin exam: negative: Rash H&P Results - Labs Result Diagrams: 01/14/17 06:10 Labs Last 24 Hours: Laboratory Results - last 24 hr 01/17/17 01/17/17 01/17/17 11:30 17:00 22:00 POC Glucose 153 H 166 H 119 H 01/18/17 06:56 POC Glucose 136 H Discharge Potential - Discharge Needs Community Services Used Prior to Admission: Home Health Aide, Oxygen Therapy Patient Discharge Plan Description: Residential Facility (with hospice) Community Services Needed at Discharge: Oxygen Therapy Plan - Swing Bed Certification Initial Certification Due: 01/12/17 14 Day Re-Cert Due: 01/26/17 44 Day Re-Cert Due: 02/25/17 74 Day Re-Cert Due: 03/27/17 - Detailed Diagnosis and Plan (1) Weakness Current Visit: Yes Status: Acute Base Code: R53.1 - WEAKNESS Comment: 01/18- PT/OT to help build physical strength and functioning, will plan on discharge to LTC facility with hospice services likely tomorrow. Continues to require verbal cues due to poor impulse control and safety awareness. Needs to use seated walker for balance control and activity intolerance. Desats with activity causing dizziness (2) Type 2 diabetes mellitus Current Visit: Yes Status: Acute Base Code: E11.9 - TYPE 2 DIABETES MELLITUS WITHOUT COMPLICATIONS Comment: 01/18/17- continue tradjenta - accu checks achqhs - low sliding scale - blood sugars controlled - eating well (3) COPD (chronic obstructive pulmonary disease) Current Visit: No Status: Acute Qualifiers: COPD type: emphysema Emphysema type: unspecified Qualified Code(s): J43.9 - Emphysema, unspecified Base Code: J44.9 - CHRONIC OBSTRUCTIVE PULMONARY DISEASE, UNSPECIFIED Comment : 01/18/17- end stage. continue home medications. supplemental O2. Rescue inh prn. complete steroid taper. Discharge plan for LTC facility with hospice services likely tomorrow (4) CHF (congestive heart failure) Current Visit: No Status: Acute Qualifiers: Congestive heart failure type: unspecified congestive heart failure type Congestive heart failure chronicity: acute on chronic Qualified Code(s): I50.9 - Heart failure, unspecified Base Code: I50.9 - HEART FAILURE, UNSPECIFIED Comment: 01/18/17- - continue bumex. monitor for fluid overload. continue fluid restriction. weight fluctuating but stable (5) Fall Current Visit: Yes Status: Acute Base Code: W19.XXXA - UNSPECIFIED FALL, INITIAL ENCOUNTER Comment: 01/18/17- fall 01/17, no obvious injury. Acute exacerbation of chronic back pain. Did well on trial of Percocet. Will change Cameron to low dose Percocet and order Lidoderm patch - ice to low back PRN - Motrin 800mg Q 8hr PRN (6) Full code status Current Visit: Yes Status: Acute Base Code: Z78.9 - OTHER SPECIFIED HEALTH STATUS Comment: 01/18/17- pt is full code (7) DVT prophylaxis Current Visit: Yes Status: Acute Base Code: [id number] - Comment: 01/18/17- nursing to encourage frequent supervised ambulation with seated walker, continue to work with PT/OT.
[2017-01-18] MEDS: BREO (FLUTICASONE/VILANTEROL) 100MCG/25MCG INHALER INH SCH (10:17)
[2017-01-18] MEDS: UMECLIDINIUM BROMIDE (INCRUSE) 62.5MCG IH SCH (10:17)
[2017-01-18] MEDS ORDERED: LIDOCAINE 5% PATCH TOP SCH (10:30)
[2017-01-18] MEDS: GABAPENTIN 100 MG CAPSULE PO SCH ×3 (10:40→22:29)
[2017-01-18] MEDS: FERROUS SULFATE 325 MG TAB PO SCH (10:40)
[2017-01-18] MEDS: BUMETANIDE 1 MG TABLET PO SCH (10:40)
[2017-01-18] MEDS: CARVEDILOL 3.125 MG TABLET PO SCH ×2 (10:40→22:27)
[2017-01-18] MEDS: CLONAZEPAM 1MG TABLET PO SCH ×3 (10:40→22:27)
[2017-01-18] MEDS: DOCUSATE SODIUM 100 MG CAPSULE PO SCH ×2 (10:40→22:28)
[2017-01-18] MEDS: GABAPENTIN 300 MG CAPSULE PO SCH ×3 (10:40→22:26)
[2017-01-18] MEDS: FLUOXETINE HCL 20 MG CAPSULE PO SCH (10:41)
[2017-01-18] MEDS: TRADJENTA 5 MG PO SCH (10:41)
[2017-01-18] MEDS: LEVOTHYROXINE SODIUM 125 MCG TABLET PO SCH (11:44)
--- NOTE | 2017-01-18 11:57 | Physical Therapy Tx Note ---
Physical Therapy Tx Note - Treatment Note Tolerated: Good Total Time Spent With Patient: 20 (PT treatment was limited due to back pain complaints.) Physical Therapy Tx Note: Detail (The patient was complaining of lower back pain L3 through L5 due to fall yesterday. The patient ambulated with 4 wheeled walker with 4L of O2 212 feet x 2 ( with one 5 minute rest period. O2 dropped to 75 at the end of first 212 feet but recovered back to 92 with 3 minute rest period and deep breathing. The patient was fatigued following ambulation and refused further activity due to lower back pain. Deep breathing and pursed lip breathing techniques were reviewed. The patient has been able to more sucessfully maintain O2 saturation level with proper breathing techniques.) Physical Therapy Problem List: Detail (1) Decreased O2 sat. levels with physical activity. 2) Decreased LE strength. 3) Decreased balance. 4) Decreased ability to complete prolonged physical activity.) Physical Therapy Goals: 1) The patient will be independent with all transfers. 2) The patient will ambulate with or without assistive device distances of 100 feet with minimal drop in O2 sat. level. 3) Increase LE strength 1/3 muscle grade. 4) The patient will tolerate 20 to 25 minutes of physicla activity with 1 to 2 rest periods. 5) Improve the patient's balance as measured by the Tinetti Balance Assessment Tool by 2 to 3 points. Physical Therapy Plan: PT 1 -2 times a day for LE strengthening and balance exercises, gait training, transfer training and breathing exercises.
[2017-01-18] MEDS: OXYCODONE HCL/APAP 5MG/325MG TABLET PO PRN ×2 (13:55→20:01)
[2017-01-18] MEDS: ZOLPIDEM TARTRATE 5 MG TABLET PO SCH (22:27)
[2017-01-18] MEDS: POTASSIUM CHLORIDE 10 MEQ TAB PO SCH (22:28)
[2017-01-18] MEDS: ASPIRIN 81 MG TABEC PO SCH (22:28)
[2017-01-18] MEDS: FOLIC ACID 1 MG TABLET PO SCH (22:28)
[2017-01-18] MEDS: ISOSORBIDE MONONITRATE 30 MG TAB.ER.24H PO SCH (22:28)
[2017-01-18] MEDS: QUETIAPINE FUMARATE 100 MG TABLET PO SCH (22:29)
[2017-01-18] MEDS: POTASSIUM CHLORIDE 20 MEQ TABLET PO SCH (22:29)
[2017-01-18] MEDS: ATORVASTATIN 20 MG TABLET PO SCH (22:30)
[2017-01-18] MEDS: REMOVE PATCH 1 EACH MISC TD SCH (22:30)
[2017-01-19] MEDS: PANTOPRAZOLE SODIUM 40 MG TABLET PO SCH ×2 (07:14→17:35)
[2017-01-19] MEDS: PATIENT OWN MED: METHYLPHENIDATE 5 MG PO SCH ×2 (07:14→10:54)
[2017-01-19] MEDS: OXYCODONE HCL/APAP 5MG/325MG TABLET PO PRN ×3 (07:14→18:39)
[2017-01-19] MEDS: IBUPROFEN 400 MG TABLET PO PRN ×2 (07:14→17:35)
[2017-01-19] MEDS: PREDNISONE 20 MG TAB PO SCH (08:07)
[2017-01-19] MEDS: NOVOLOG FLEXPEN (INSULIN ASPART) 100 UNITS/ML SQ SCH ×3 (08:07→17:36)
[2017-01-19] MEDS: BREO (FLUTICASONE/VILANTEROL) 100MCG/25MCG INHALER INH SCH ×2 (09:50→11:27)
[2017-01-19] MEDS: UMECLIDINIUM BROMIDE (INCRUSE) 62.5MCG IH SCH ×2 (09:51→11:28)
[2017-01-19] MEDS: CARVEDILOL 3.125 MG TABLET PO SCH ×2 (10:51→22:22)
[2017-01-19] MEDS: DOCUSATE SODIUM 100 MG CAPSULE PO SCH ×2 (10:51→22:22)
[2017-01-19] MEDS: FERROUS SULFATE 325 MG TAB PO SCH (10:51)
[2017-01-19] MEDS: BUMETANIDE 1 MG TABLET PO SCH (10:51)
[2017-01-19] MEDS: LIDOCAINE 5% PATCH TOP SCH (10:52)
[2017-01-19] MEDS: GABAPENTIN 100 MG CAPSULE PO SCH ×3 (10:52→22:21)
[2017-01-19] MEDS: CLONAZEPAM 1MG TABLET PO SCH ×3 (10:52→22:22)
[2017-01-19] MEDS: TRADJENTA 5 MG PO SCH (10:53)
[2017-01-19] MEDS: FLUOXETINE HCL 20 MG CAPSULE PO SCH (10:53)
[2017-01-19] MEDS: GABAPENTIN 300 MG CAPSULE PO SCH ×3 (10:53→22:21)
[2017-01-19] MEDS: LEVOTHYROXINE SODIUM 125 MCG TABLET PO SCH (12:49)
[2017-01-19] MEDS ORDERED: NYSTATIN 15 GM TUBE TOP PRN (18:14)
[2017-01-19] MEDS: ASPIRIN 81 MG TABEC PO SCH (22:20)
[2017-01-19] MEDS: ISOSORBIDE MONONITRATE 30 MG TAB.ER.24H PO SCH (22:21)
[2017-01-19] MEDS: POTASSIUM CHLORIDE 10 MEQ TAB PO SCH (22:22)
[2017-01-19] MEDS: FOLIC ACID 1 MG TABLET PO SCH (22:22)
[2017-01-19] MEDS: ATORVASTATIN 20 MG TABLET PO SCH (22:22)
[2017-01-19] MEDS: POTASSIUM CHLORIDE 20 MEQ TABLET PO SCH (22:22)
[2017-01-19] MEDS: QUETIAPINE FUMARATE 100 MG TABLET PO SCH (22:22)
[2017-01-19] MEDS: ZOLPIDEM TARTRATE 5 MG TABLET PO SCH (22:23)
[2017-01-20] MEDS: REMOVE PATCH 1 EACH MISC TD SCH (00:13)
[2017-01-20] MEDS: OXYCODONE HCL/APAP 5MG/325MG TABLET PO PRN ×4 (01:14→15:50)
[2017-01-20] MEDS: IBUPROFEN 400 MG TABLET PO PRN ×3 (01:14→15:50)
[2017-01-20] MEDS: PANTOPRAZOLE SODIUM 40 MG TABLET PO SCH ×2 (07:02→15:42)
[2017-01-20] MEDS: PATIENT OWN MED: METHYLPHENIDATE 5 MG PO SCH ×2 (07:02→12:13)
--- NOTE | 2017-01-20 07:36 | RADIOLOGY REPORT ---
EXAM: LUMBAR SPINE, TWO VIEWS HISTORY: BACK PAIN FROM FALL. TECHNIQUE: AP and lateral views of the lumbar spine were obtained. Comparison: No prior lumbar spine series. Encounter: Initial. FINDINGS: Surgical clips right upper quadrant presumably from cholecystectomy. Minor thoracolumbar curve to the right. Diffuse osteopenia suggesting osteoporosis. There is moderate compression of the superior end plate of the body of L1. This is new compared with a prior chest CT dated 09/02/16 and is presumably acute. No additional fracture more inferiorly in the lumbar spine evident. There is probably some narrowing of the lumbosacral interspace. Facet joint arthropathy in the lower lumbar spine. IMPRESSION: 1. MILD TO MODERATE COMPRESSION OF THE SUPERIOR END PLATE OF THE BODY OF L1, NEW SINCE 09/02/16 AND PRESUMABLY ACUTE. 2. DEGENERATIVE CHANGES PARTICULARLY INFERIORLY IN THE LUMBAR SPINE WIT A THORACOLUMBAR CURVE TO THE RIGHT. JOB NUMBER: [id number] MTDD
[2017-01-20] MEDS ORDERED: PREDNISONE 10 MG TAB PO SCH (08:00)
[2017-01-20] MEDS: NOVOLOG FLEXPEN (INSULIN ASPART) 100 UNITS/ML SQ SCH ×2 (08:15→12:10)
--- NOTE | 2017-01-20 09:18 | Physician Progress Note ---
Subjective - Date Date of Progress Note: 01/20/17 - Admitting Diagnosis Diagnosis: Deconditioning due to COPD exacerbation - Subjective Events since last encounter: Nursing reported patient had an unwitnessed fall early this am. Patient states she was in a lot of pain, go out of bed with only socks on and reports legs gave out. She did not use call light to ask for assist or use her walker. No injury but she does report worsening of low back pain. Nursing Care Plan Problem List Activity Intolerance (Swing Bed) Start: 01/12/17 16: 53 Freq: Status: Active Created 01/12/17 16:53 K[facility] (Rec: 01/12/17 16:53 [id number]) Anxiety Start: 01/12/17 16: 54 Freq: Status: Active Created 01/12/17 16:54 [facility] (Rec: 01/12/17 16:54 [id number]) High Risk: Altered Glucose Metabolism Start: 01/12/17 16: 54 Freq: Status: Active Created 01/12/17 16:54 [facility] (Rec: 01/12/17 16:54 [id number]) High Risk: Impaired Skin Integrity Start: 01/12/17 16: 54 Freq: Status: Active Created 01/12/17 16:54 [facility] (Rec: 01/12/17 16:54 [id number]) Ineffective Breathing Pattern Start: 01/12/17 16: 54 Freq: Status: Active Created 01/12/17 16:54 [facility] (Rec: 01/12/17 16:54 [id number]) Knowledge Deficit (Swing Bed) Start: 01/12/17 16: 53 Freq: Status: Active Created 01/12/17 16:53 [facility] (Rec: 01/12/17 16:53 [facility] [place] [id number]) Knowledge Deficit: Diabetes Mellitus Start: 01/12/17 16: 54 Freq: Status: Active Created 01/12/17 16:54 [facility] (Rec: 01/12/17 16:54 [id number]) Pain (Swing Bed) Start: 01/12/17 16: 53 Freq: Status: Active Created 01/12/17 16:53 [facility] (Rec: 01/12/17 16:53 [id number]) General - Cognitive Patterns Speech: Soft Thought Process: Intact Thought Content: Normal - Communication Select best description of speech pattern: Clear Speech Ability to express ideas and wants: Understood Understanding verbal content: Understands - Mood and Behavior Patterns Appearance: Well Groomed, Disheveled Mood: Normal Attitude: Cooperative Motor Activity: Calm Affect: Appropriate - Physical Functioning Activity Level: Up with assist x1 Turning: Self ad chris ROM Ability: Moves all extremities Assistive Devices: 4 Wheel Walker Ambulation Ability: Independent Bed Mobility: Independent Transfer Ability: Needs Assist Bathing Ability: Needs Assist Personal Hygiene: Needs Assist Dressing Ability: Needs Assist Eating (Feeding) Ability: Independent Toileting Ability: Independent Administer Own Medication: Independent - Continence Bowel Pattern: Normal for Patient Bladder Pattern: Normal Meds/Allergies - Allergies Allergies Allergy/AdvReac Type Severity Reaction Status Date / Time codeine Allergy Unknown RASH Verified 10/30/16 20:00 latex AdvReac RASH Verified 10/30/16 20:00 - Active Medications Current Medications Albuterol Sulfate (Ventolin Hfa) 2 puff INH Q4H PRN PRN Reason: SHORTNESS OF BREATH/WHEEZING Last Admin: 01/13/17 20:20 Dose: 2 puff Aspirin (Ecotrin (Ec)) 81 mg PO QHS [facility] Last Admin: 01/19/17 22:20 Dose: 81 mg Atorvastatin Calcium (Lipitor) 20 mg PO QHS [facility] Last Admin: 01/19/17 22:22 Dose: 20 mg Bumetanide (Bumex) 1 mg PO DAILY [facility] Last Admin: 01/19/17 10:51 Dose: 1 mg Carvedilol (Coreg) 3.125 mg PO BID [facility] Last Admin: 01/19/17 22:22 Dose: 3.125 mg Clonazepam (Klonopin) 1 mg PO TID [facility] Last Admin: 01/19/17 22:22 Dose: 1 mg Colchicine (Colcrys) 0.6 mg PO BID PRN PRN Reason: GOUT Docusate Sodium (Colace) 100 mg PO BID [facility] Last Admin: 01/19/17 22:22 Dose: 100 mg Ferrous Sulfate (Iron) 325 mg PO DAILY [facility] Last Admin: 01/19/17 10:51 Dose: 325 mg Fluoxetine HCl (Prozac) 60 mg PO DAILY [facility] Last Admin: 01/19/17 10:53 Dose: 60 mg Folic Acid () 1 mg PO QHS [facility] Last Admin: 01/19/17 22:22 Dose: 1 mg Gabapentin (Neurontin) 300 mg PO TID [facility] Last Admin: 01/19/17 22:21 Dose: 300 mg Gabapentin (Neurontin) 100 mg PO TID [facility] Last Admin: 01/19/17 22:21 Dose: 100 mg Ibuprofen (Motrin 400mg) 800 mg PO Q6H PRN PRN Reason: Pain - General Insulin Aspart (Novolog Flexpen) 1 unit SQ TIDINS [facility] PRN Reason: Protocol Last Admin: 01/20/17 08:15 Dose: 2 unit Isosorbide Mononitrate (Imdur) 30 mg PO QHS [facility] Last Admin: 01/19/17 22:21 Dose: 30 mg Levothyroxine Sodium (Synthroid) 125 mcg PO 1200 [facility] Last Admin: 01/19/17 12:49 Dose: 125 mcg Lidocaine (Lidoderm) 1 each TOP DAILY [facility] Last Admin: 01/19/17 10:52 Dose: 1 each Magnesium Hydroxide (Milk Of Magnesium) 30 ml PO DAILY PRN PRN Reason: INDIGESTION Last Admin: 01/15/17 09:56 Dose: 30 ml Miscellaneous (Remove Patch) 1 each TD QHS [facility] Last Admin: 01/20/17 00:13 Dose: Not Given Nitroglycerin (Nitrostat 0.4mg) 0.4 mg SL Q5MIN PRN PRN Reason: CHEST PAIN Nystatin () 15 gm TOP ASDIR PRN PRN Reason: RASH Last Admin: 01/19/17 18:39 Dose: 15 gm Oxycodone/Acetaminophen (Percocet 5-325 Mg Tablet) 1 udtab PO Q6H PRN PRN Reason: Pain - General Stop: 01/25/17 10:19 Pantoprazole Sodium (Protonix) 40 mg PO BIDAC [facility] Last Admin: 01/20/17 07:02 Dose: 40 mg Patient Own Med: (Methylphenidate 5 Mg) 1 each PO 0730,1130 [facility] Last Admin: 01/20/17 07:02 Dose: 1 each Patient Own Med: Tradjenta ( Linagliptin) 5 Mg 1 each PO DAILY [facility] Last Admin: 01/19/17 10:53 Dose: 1 each Patient Own Med: Ergocalciferol 50, 000 Iu 1 each PO WEEKLY [facility] Last Admin: 01/16/17 10:48 Dose: 1 each Potassium Chloride (Klor-Con) 10 meq PO QHS [facility] Last Admin: 01/19/17 22:22 Dose: 10 meq Potassium Chloride (Klor-Con) 20 meq PO QHS [facility] Last Admin: 01/19/17 22:22 Dose: 20 meq Prednisone (Prednisone 10mg) 10 mg PO DAILYWM [facility] Stop: 01/22/17 08:01 Last Admin: 01/20/17 08:19 Dose: 10 mg Quetiapine Fumarate (Seroquel) 300 mg PO QHS [facility] Last Admin: 01/19/17 22:22 Dose: 300 mg Zolpidem Tartrate (Ambien) 5 mg PO QHS [facility] Last Admin: 01/19/17 22:23 Dose: 5 mg Objective - Vital Signs Vital Signs: Vital Signs - Last 24 Hrs Temp Pulse Pulse Resp BP Pulse Ox 01/19/17 20:00 98.8 F 74 20 119/62 95 01/19/17 11:30 86 17 95 H&P Results - Labs Result Diagrams: 01/14/17 06:10 Labs Last 24 Hours: Laboratory Results - last 24 hr 01/19/17 01/19/17 01/19/17 11:47 17:16 22:30 POC Glucose 208 H 197 H 140 H Discharge Potential - Discharge Needs Community Services Used Prior to Admission: Home Health Aide, Oxygen Therapy Patient [facility] Community Services Needed at Discharge: Oxygen Therapy Plan - Swing Bed Certification Initial Certification Due: 01/12/17 14 Day Re-Cert Due: 01/26/17 44 Day Re-Cert Due: 02/25/17 74 Day Re-Cert Due: 03/27/17 - Detailed Diagnosis and Plan (1) Weakness Current Visit: Yes Status: Acute Base Code: R53.1 - WEAKNESS Comment: 01/18- PT/OT to help build physical strength and functioning, will plan on discharge to LTC facility with hospice services likely tomorrow. Continues to require verbal cues due to poor impulse control and safety awareness. Needs to use seated walker for balance control and activity intolerance. Desats with activity causing dizziness (2) Type 2 diabetes mellitus Current Visit: Yes Status: Acute Base Code: E11.9 - TYPE 2 DIABETES MELLITUS WITHOUT COMPLICATIONS Comment: 01/18/17- continue tradjenta - accu checks achqhs - low sliding scale - blood sugars controlled - eating well (3) COPD (chronic obstructive pulmonary disease) Current Visit: No Status: Acute Qualifiers: COPD type: emphysema Emphysema type: unspecified Qualified Code(s): J43.9 - Emphysema, unspecified Base Code: J44.9 - CHRONIC OBSTRUCTIVE PULMONARY DISEASE, UNSPECIFIED Comment : 01/18/17- end stage. continue home medications. supplemental O2. Rescue inh prn. complete steroid taper. Discharge plan for LTC facility with hospice services likely tomorrow (4) CHF (congestive heart failure) Current Visit: No Status: Acute Qualifiers: Congestive heart failure type: unspecified congestive heart failure type Congestive heart failure chronicity: acute on chronic Qualified Code(s): I50.9 - Heart failure, unspecified Base Code: I50.9 - HEART FAILURE, UNSPECIFIED Comment: 01/18/17- - continue bumex. monitor for fluid overload. continue fluid restriction. weight fluctuating but stable (5) Fall Current Visit: Yes Status: Acute Base Code: W19.XXXA - UNSPECIFIED FALL, INITIAL ENCOUNTER Comment: 01/20/17- fall 01/17 and 01/20, no obvious injury. Acute exacerbation of chronic back pain. Is doing well on Percocet with Ibuprofen and Lidoderm patch. Poor safety awareness - lumbar x-ray 01/19 negative for acute fracture, did show acute compression L1. PT eval for brace but not appropriate due to high placement with risk of impeding full respiratory excursion - will repeat lumbar x-ray 01/20 to rule out acute fracture - ice to low back PRN - Motrin 800mg Q 6hr PRN to be given with Percocet - continue PT/OT - bed alarm to be placed today (6) Full code status Current Visit: Yes Status: Acute Base Code: Z78.9 - OTHER SPECIFIED HEALTH STATUS Comment: 01/18/17- pt is full code (7) DVT prophylaxis Current Visit: Yes Status: Acute Base Code: [id number] - Comment: 01/18/17- nursing to encourage frequent supervised ambulation with seated walker, continue to work with PT/OT.
[2017-01-20] MEDS: BREO (FLUTICASONE/VILANTEROL) 100MCG/25MCG INHALER INH SCH (10:13)
[2017-01-20] MEDS: UMECLIDINIUM BROMIDE (INCRUSE) 62.5MCG IH SCH (10:13)
[2017-01-20] MEDS: FERROUS SULFATE 325 MG TAB PO SCH (10:21)
[2017-01-20] MEDS: CARVEDILOL 3.125 MG TABLET PO SCH (10:21)
[2017-01-20] MEDS: DOCUSATE SODIUM 100 MG CAPSULE PO SCH (10:21)
[2017-01-20] MEDS: CLONAZEPAM 1MG TABLET PO SCH ×2 (10:21→15:42)
[2017-01-20] MEDS: BUMETANIDE 1 MG TABLET PO SCH (10:21)
[2017-01-20] MEDS: FLUOXETINE HCL 20 MG CAPSULE PO SCH (10:21)
[2017-01-20] MEDS: TRADJENTA 5 MG PO SCH (10:22)
[2017-01-20] MEDS: GABAPENTIN 100 MG CAPSULE PO SCH ×2 (10:28→15:42)
--- NOTE | 2017-01-20 10:44 | Physical Therapy Tx Note ---
Physical Therapy Tx Note - Treatment Note Tolerated: Fair Total Time Spent With Patient: 20 Physical Therapy Tx Note: Detail (The patient was in bed when PT arrived. The patient reports she fell again and continues to have lower back pain from previous fall. The patient was anxious to move this am. The patient was instructed in proper log rolling technique to sit up for back protection. The patient completed the following LE strengthening exercises in a seated position : abdominal isometrics, gluteal sets both x 5 reps, LAQ, hamstring curls, hip adductor squeezes all x 10 reps without resistance. The patient ambulated with 4 wheeled walker with 4L of O2 and CG/supervision for safety a distance of 75 feet x 1. The patient then returned to bed. Bed alarm was set and call light was in patient's reach and cold pack was in place. The patient did complain of back pain when sitting up.) Physical Therapy Problem List: Detail (1) Decreased O2 sat. levels with physical activity. 2) Decreased LE strength. 3) Decreased balance. 4) Decreased ability to complete prolonged physical activity.) Physical Therapy Goals: 1) The patient will be independent with all transfers. 2) The patient will ambulate with or without assistive device distances of 100 feet with minimal drop in O2 sat. level. 3) Increase LE strength 1/3 muscle grade. 4) The patient will tolerate 20 to 25 minutes of physicla activity with 1 to 2 rest periods. 5) Improve the patient's balance as measured by the [employer] Balance Assessment Tool by 2 to 3 points. Physical Therapy Plan: PT 1 -2 times a day for LE strengthening and balance exercises, gait training, transfer training and breathing exercises.
[2017-01-20] MEDS: LIDOCAINE 5% PATCH TOP SCH (11:00)
[2017-01-20] MEDS: GABAPENTIN 300 MG CAPSULE PO SCH ×2 (11:01→15:42)
[2017-01-20] MEDS: LEVOTHYROXINE SODIUM 125 MCG TABLET PO SCH (12:13)
--- NOTE | 2017-01-20 13:34 | Discharge Summary ---
Providers Discharge Summary Date: 01/20/17 Date of admission: 01/12/17 15:50 Expected Date of Discharge: 01/20/17 Attending physician: GERARD AGUILAR Primary care physician: MORA ROJO M.D. Physical Exam - Vital Signs Vital Signs: Vital Signs - Last 24 Hrs Temp Pulse Pulse Resp BP Pulse Ox 01/20/17 10:17 85 15 95 01/20/17 08:00 98.8 F 72 24 120/76 93 L 01/19/17 20:00 98.8 F 74 20 119/62 95 - General General Appearance: Alert, Oriented x3, Cooperative, No acute distress - Head Head exam: Atraumatic, Normocephalic - Eye Eye exam: Normal appearance - ENT ENT exam: Normal exam Ear exam: Normal external inspection Nasal Exam: Normal inspection - Neck Neck exam: Normal inspection, Full ROM - Respiratory Respiratory exam: Decreased breath sounds (throughout), Other (mild conversational dyspnea at baseline). negative: Accessory muscle use, Rales, Respiratory distress, Rhonchi, Wheezes - Cardiovascular Cardiovascular Exam: Regular rate, Normal rhythm, Normal heart sounds Peripheral Pulses: 2+: Dorsalis Pedis (R), Dorsalis Pedis (L) - GI/Abdominal GI/Abdominal exam: Soft, Normal bowel sounds - Rectal Rectal exam: Deferred - exam: Deferred - Extremities Extremities exam: negative: Pedal edema - Back Back exam: Reports: Normal inspection, Paraspinal tenderness (lumbar), Vertebral tenderness (lumbar) - Neurological Neurological exam: Alert - Psychiatric Psychiatric exam: Normal affect, Normal mood. negative: Agitated - Skin Skin exam: negative: Rash Hospitalization - Hospitalization Admission Diagnosis: Deconditioning due to COPD exacerbation - Problem List (1) Weakness Current Visit: Yes Status: Acute Base Code: R53.1 - WEAKNESS Comment: 01/20- PT/OT to help build physical strength and functioning, will plan on discharge to LTC facility with hospice services. Continues to require verbal cues due to poor impulse control and safety awareness. Needs to use seated walker for balance control and activity intolerance. Desats with activity causing dizziness. (2) Type 2 diabetes mellitus Current Visit: Yes Status: Acute Base Code: E11.9 - TYPE 2 DIABETES MELLITUS WITHOUT COMPLICATIONS Comment: 01/20/17- blood sugars have been under reasonable control - continue tradjenta - accu checks [facility] - blood sugars controlled (3) COPD (chronic obstructive pulmonary disease) Current Visit: No Status: Acute Discharge Diagnosis: COPD type: emphysema Emphysema type: unspecified Qualified Code(s): J43.9 - Emphysema, unspecified Base Code: J44.9 - CHRONIC OBSTRUCTIVE PULMONARY DISEASE, UNSPECIFIED Comment : 01/20/17- end stage. continue home medications. supplemental O2 to keep SPO2 88-92%. Rescue inh prn. Discharge plan for LTC facility with hospice services. (4) CHF (congestive heart failure) Current Visit: No Status: Acute Discharge Diagnosis: Congestive heart failure type: unspecified congestive heart failure type Congestive heart failure chronicity: acute on chronic Qualified Code(s): I50.9 - Heart failure, unspecified Base Code: I50.9 - HEART FAILURE, UNSPECIFIED Comment: 01/20/17- - continue bumex. monitor for fluid overload. continue fluid restriction. weight fluctuating but stable - last weight 01/20 219.1lb - no evidence fluid overload at time of discharge (5) Fall Current Visit: Yes Status: Acute Base Code: W19.XXXA - UNSPECIFIED FALL, INITIAL ENCOUNTER Comment: 01/20/17- fall 01/17 and 01/20, no obvious injury. Acute exacerbation of chronic back pain. Is doing well on Percocet with Ibuprofen and Lidoderm patch. Poor safety awareness - lumbar x-ray 01/19 negative for acute fracture, did show acute compression L1. PT eval for brace but not appropriate due to high placement with risk of impeding full respiratory excursion - will repeat lumbar x-ray 01/20 to rule out acute fracture - ice to low back PRN - Motrin 800mg Q 6hr PRN to be given with Percocet - continue PT/OT - bed alarm to be placed today (6) Full code status Current Visit: Yes Status: Acute Base Code: Z78.9 - OTHER SPECIFIED HEALTH STATUS Comment: 01/20/17- pt remained full code during this hospitalization (7) DVT prophylaxis Current Visit: Yes Status: Acute Base Code: [id number] - Comment: 01/20/17- nursing to encourage frequent supervised ambulation with seated walker - Hospitalization Course Disposition: Hospice; pt to live @facility Reason For Discharge/Transfer: Medical Stability Hospital Course: 66 yo female admitted to [facility] for weakness. PMHx of IPF, COPD, previous smoker ( 50 years, 2-3 ppd, quit 5 years ago), stage 1 diastolic heart failure, london' s esophagus, RLS, CAD, subclavian steal syndrome, DM type II, h/o TIA 20 years ago. Patient admitted 01/06-01/12 for acute hypoxic respiratory failure secondary to idiopathic pulmonary fibrosis and/or infectious process. Patient feels at baseline regarding her resp state. She's sating well on 3 L's O2 NC. Denies any SUZIE, sob, fever, chills, n/v, abd pain, blood in stool, dysuria, headache, dizziness or lightheadedness. + constipation. Lives independently here in [place]. Retired. One story home. no steps to get into the house. Has help around the house 3 days per week. Swing Bed hospitalization remain uncomplicated. Did have 2 unwitnessed falls without injury but causing worsening of chronic low back pain. Lumbar x-ray at that time showed acute compression of L1. PT evaluated for lumbar brace but is not a candidate due to level of lumbar injury and risk of further inhibiting full respiratory excursion. Has remained afebrile during stay. Pain controlled with Percocet and Motrin every 6 hours as needed. Will need SBA with ambulation and ADL due to poor impulse control and poor safety awareness. Is A& O x3. Cooperative PCP: Dr. Rojo Inside Polisher: Dr. Ramos Procedures: Imaging and X-Rays 01/19/17 14:45 LUMBAR SPINE / AP LAT [RAD] Stat 01/20/17 07:42 LUMBAR SPINE / AP LAT [RAD] Stat Abnormal Labs: Abnormal Lab Results 01/12/17 01/12/17 01/13/17 Range/Units 17:16 21:16 17:00 Sodium (136-145) mmol/L Carbon Dioxide (22-30) mmol/L Anion Gap (7-16) BUN (7-17) mg/dL POC Glucose 253 H 213 H 244 H (70-110) mg/dL Random Glucose (70-110) mg/dL Calcium (8.5-10.1) mg/dL 01/13/17 01/14/17 01/14/17 Range/Units 22:00 06:10 13:18 Sodium 135 L (136-145) mmol/L Carbon Dioxide 30.6 H (22-30) mmol/L Anion Gap 6.4 L (7-16) BUN 34 H (7-17) mg/dL POC Glucose 171 H 196 H (70-110) mg/dL Random Glucose 121 H (70-110) mg/dL Calcium 8.0 L (8.5-10.1) mg/dL 01/14/17 01/14/17 01/15/17 Range/Units 17:54 22:00 07:07 Sodium (136-145) mmol/L Carbon Dioxide (22-30) mmol/L Anion Gap (7-16) BUN (7-17) mg/dL POC Glucose 212 H 191 H 122 H (70-110) mg/dL Random Glucose (70-110) mg/dL Calcium (8.5-10.1) mg/dL 01/15/17 01/15/17 01/15/17 Range/Units 12:23 17:00 21:58 Sodium (136-145) mmol/L Carbon Dioxide (22-30) mmol/L Anion Gap (7-16) BUN (7-17) mg/dL POC Glucose 182 H 163 H 165 H (70-110) mg/dL Random Glucose (70-110) mg/dL Calcium (8.5-10.1) mg/dL 01/16/17 01/16/17 01/16/17 Range/Units 07:14 11:30 16:20 Sodium (136-145) mmol/L Carbon Dioxide (22-30) mmol/L Anion Gap (7-16) BUN (7-17) mg/dL POC Glucose 133 H 154 H 169 H (70-110) mg/dL Random Glucose (70-110) mg/dL Calcium (8.5-10.1) mg/dL 01/16/17 01/17/17 01/17/17 Range/Units 22:00 06:45 11:30 Sodium (136-145) mmol/L Carbon Dioxide (22-30) mmol/L Anion Gap (7-16) BUN (7-17) mg/dL POC Glucose 189 H 130 H 153 H (70-110) mg/dL Random Glucose (70-110) mg/dL Calcium (8.5-10.1) mg/dL 01/17/17 01/17/17 01/18/17 Range/Units 17:00 22:00 06:56 Sodium (136-145) mmol/L Carbon Dioxide (22-30) mmol/L Anion Gap (7-16) BUN (7-17) mg/dL POC Glucose 166 H 119 H 136 H (70-110) mg/dL Random Glucose (70-110) mg/dL Calcium (8.5-10.1) mg/dL 01/18/17 01/18/17 01/18/17 Range/Units 11:36 17:00 22:00 Sodium (136-145) mmol/L Carbon Dioxide (22-30) mmol/L Anion Gap (7-16) BUN (7-17) mg/dL POC Glucose 186 H 204 H 171 H (70-110) mg/dL Random Glucose (70-110) mg/dL Calcium (8.5-10.1) mg/dL 01/19/17 01/19/17 01/19/17 Range/Units 07:46 11:47 17:16 Sodium (136-145) mmol/L Carbon Dioxide (22-30) mmol/L Anion Gap (7-16) BUN (7-17) mg/dL POC Glucose 124 H 208 H 197 H (70-110) mg/dL Random Glucose (70-110) mg/dL Calcium (8.5-10.1) mg/dL 01/19/17 01/20/17 Range/Units 22:30 11:48 Sodium (136-145) mmol/L Carbon Dioxide (22-30) mmol/L Anion Gap (7-16) BUN (7-17) mg/dL POC Glucose 140 H 185 H (70-110) mg/dL Random Glucose (70-110) mg/dL Calcium (8.5-10.1) mg/dL Discharge Medications - Discharge Medications Prescriptions: Zolpidem Tartrate [Ambien] 5 mg PO QHS #5 tab Clonazepam [Klonopin] 1 mg PO TID #15 Oxycodone HCl/Acetaminophen [Percocet 5mg/325mg] 1 udtab PO Q6H PRN #15 PRN Reason: Pain - General Home Medications: Ambulatory Orders Aspirin 81 mg PO QHS 10/13/13 [Last Taken 1 Day Ago ~03/01/16] Bumetanide [Bumex] 1 mg PO DAILY 10/13/13 [Last Taken 1 Day Ago ~03/01/16] Docusate Sodium [Colace] 100 mg PO BID 10/13/13 [Last Taken 1 Day Ago ~03/01/16] Fluoxetine HCl [Prozac] 60 mg PO DAILY 10/13/13 [Last Taken 1 Day Ago ~03/01/16] Folic Acid 1 mg PO QHS 10/13/13 [Last Taken 1 Day Ago ~03/01/16] Levothyroxine Sodium [Levoxyl] 125 mcg PO DAILY 10/13/13 [Last Taken 1 Day Ago ~ 03/01/16] Potassium Chloride [K-Tab ER] 30 meq PO QHS 10/13/13 [Last Taken 1 Day Ago ~] Quetiapine Fumarate [Seroquel] 300 mg PO QHS 10/13/13 [Last Taken 1 Day Ago ~] Isosorbide Mononitrate [Imdur] 30 mg PO QHS 06/09/14 [Last Taken 1 Day Ago ~] Atorvastatin Calcium [Lipitor] 20 mg PO QHS 06/26/14 [Last Taken 1 Day Ago ~] Omeprazole [Prilosec] 20 mg PO BID 06/26/14 [Last Taken 1 Day Ago ~03/01/16] Carvedilol [Coreg] 3.125 mg PO BID 05/20/15 [Last Taken 1 Day Ago ~03/01/16] Gabapentin [Neurontin] 400 mg PO TID 05/20/15 [Last Taken 1 Day Ago ~03/01/16] Umeclidinium [place] [Incruse Ellipta] 1 puff INH DAILY 10/31/16 [Last Taken Unknown] Albuterol Sulfate [Proventil Hfa] 1 - 2 puff INH .EVERY 4-6 HOURS PRN 01/12/17 [ Last Taken Unknown] Cholecalciferol (Vitamin D3) [Vitamin D3] 50,000 unit PO WEEKLY 01/12/17 [Last Taken Unknown] Clonazepam [Klonopin] 1 mg PO TID 01/12/17 [Last Taken Unknown] Colchicine [Colcrys] 0.6 mg PO BID 01/12/17 [Last Taken Unknown] Eszopiclone [Lunesta] 1 mg PO QHS 01/12/17 [Last Taken Unknown] Ferrous Sulfate [Iron] 325 mg PO DAILY 01/12/17 [Last Taken Unknown] Fluticasone/Vilanterol [Breo Ellipta 100-25 Mcg INH] 1 each IH DAILY 01/12/17 [ Last Taken Unknown] Hydrocodone/Acetaminophen [[place] 10mg/325mg] 1 tab PO Q6H PRN 01/12/17 [Last Taken Unknown] Linagliptin [Tradjenta] 5 mg PO DAILY 01/12/17 [Last Taken Unknown] Methylphenidate HCl 5 mg PO BID 01/12/17 [Last Taken Unknown] Nitroglycerin 0.4 mg SL ASDIR PRN 01/12/17 [Last Taken Unknown] Albuterol Sulfate [Ventolin Hfa] 2 puff INH Q4H PRN inhaler 01/20/17 [Last Taken Unknown] Aspirin Enteric-Coated [Ecotrin (EC)] 81 mg PO QHS 01/20/17 [Last Taken Unknown] Bumetanide [Bumex] 1 mg PO DAILY 01/20/17 [Last Taken Unknown] Carvedilol [Coreg] 3.125 mg PO BID 01/20/17 [Last Taken Unknown] Clonazepam [Klonopin] 1 mg PO TID #15 01/20/17 [Last Taken Unknown] Colchicine [Colcrys] 0.6 mg PO BID PRN 01/20/17 [Last Taken Unknown] Docusate Sodium [Colace] 100 mg PO BID cap 01/20/17 [Last Taken Unknown] Ferrous Sulfate [Iron] 325 mg PO DAILY tab 01/20/17 [Last Taken Unknown] Fluoxetine HCl [Prozac] 60 mg PO DAILY 01/20/17 [Last Taken Unknown] Fluticasone/Vilanterol 100/25 [Breo Ellipta 100-25 Mcg INH] 1 puff INH DAILY inhaler 01/20/17 [Last Taken Unknown] Folic Acid 1 mg PO QHS 01/20/17 [Last Taken Unknown] Gabapentin [Neurontin] 100 mg PO TID 01/20/17 [Last Taken Unknown] Gabapentin [Neurontin] 300 mg PO TID 01/20/17 [Last Taken Unknown] Ibuprofen [Motrin] 800 mg PO Q6H PRN 01/20/17 [Last Taken Unknown] Insulin Aspart [Novolog Flexpen] 1 unit SQ TIDINS ml 01/20/17 [Last Taken Unknown] Isosorbide Mononitrate [Imdur] 30 mg PO QHS tab.er.24h 01/20/17 [Last Taken Unknown] Levothyroxine Sodium [Synthroid] 125 mcg PO 1200 01/20/17 [Last Taken Unknown] Lidocaine Patch [Lidoderm] 1 each TOP DAILY patch 01/20/17 [Last Taken Unknown] Nystatin 15 gm TOP ASDIR PRN tube 01/20/17 [Last Taken Unknown] Oxycodone HCl/Acetaminophen [Percocet 5mg/325mg] 1 udtab PO Q6H PRN #15 [Last Taken Unknown] Pantoprazole Sodium [Protonix] 40 mg PO BIDAC 01/20/17 [Last Taken Unknown] Potassium Chloride [Klor-Con] 10 meq PO QHS 01/20/17 [Last Taken Unknown] Potassium Chloride [Klor-Con] 20 meq PO QHS 01/20/17 [Last Taken Unknown] Prednisone [Prednisone 10Mg] 10 mg PO DAILYWM tab 01/20/17 [Last Taken Unknown] Quetiapine Fumarate [Seroquel] 300 mg PO QHS 01/20/17 [Last Taken Unknown] Umeclidinium [place] (Incruse) [Incruse Ellipta] 1 puff IH DAILY inhaler [Last Taken Unknown] Zolpidem Tartrate [Ambien] 5 mg PO QHS #5 tab 01/20/17 [Last Taken Unknown] Discharge Plan - Discharge Instructions Activity at Discharge: As Per Physical Therapy, Increase Activity as Tolerated Diet at Discharge: Diabetic Diet
--- NOTE | 2017-01-23 07:09 | Rehab Discharge Summary ---
Patient Information - Patient Information Diagnosis: deconditioning due to COPD exacerbation Ordered Treatment: OT Evaluate and Treat Surgery: No History: Detail (Pt admitted on 01/12/17 to swing bed from [facility].) Past Medical/Surgical Hx: PAST MEDICAL/SURGICAL HISTORY Past Surgical History hysterectomy gallbladder stents in subclavian PMH - Respiratory Hx Respiratory Disorders Yes Hx Bronchitis Yes Hx Chronic Obstructive Yes Pulmonary Disease (COPD) Comment: pulmonary fibrosis PMH - Cardiovascular Hx Cardiovascular Disorders Yes Hx Cardiac Catheterization Yes Hx Chest Pain Yes Hx Congestive Heart Failure Yes Hx Heart Attack Yes: 2 STENTS Hx Transient Ischemic Attacks Yes (TIA) PMH - Neuro Hx Neurological Disorders Yes Hx Dizziness Yes Hx Neuropathy Yes: diabetic neuropathy in feet and hands Hx Seizures Yes Hx Transient Ischemic Attacks Yes (TIA) PMH - GI Hx Gastrointestinal Disorders Yes Hx Gastroesophageal Reflux Yes Hx Weight Loss/Weight Gain Yes: loss 12# past month Comment: Barretts esophagus PMH - Hx Genitourinary Disorders Yes Comment: bladder sling PMH - Endocrine Hx Endocrine Disorders Yes Hx Diabetes Yes Hx Thyroid Disease Yes: hypo PMH - Musculoskeletal Hx Musculoskeletal Disorders Yes Hx Fibromyalgia Yes Hx Gout Yes PMH - Psych Hx Psychiatric Problems Yes Hx Anxiety Yes Hx Depression Yes Comment: Bipolar PMH - Hematology/Oncology Hx Hematology/Oncology No Disorders Premorbid Status: Detail (Pt lives alone in a 1st floor apartment, no steps to enter. She has a tub/shower combination with a seat and hand held shower, no grab bar. She usually sits to shower. She has a standard height toilet without grab bars. Prior to admission she ambulated without an assistive device. She has a person come to her house 3 x per week for house work, laundry and meals. She is Ind with preparing frozen meals. She has a 4 wheeled walker.) Social History: Detail (Pt has 2 daughers, 1 lives locally ([place]).) Precautions: [place]oll[place], Fall, Other (Droplet precautions) Objective Data - Pain Pain Present: Yes (Pt reports back pain as well as pain in hands, feet and back. ) - Mental Status Patient Orientation: Oriented x3 - Visual Perception Appears within normal limits for therapeutic activities - ROM Within normal limits (Robin UE AROM WNL except left shoulder flexion which is limited due to pre-existing injury.) - Strength/Tone Not within normal limits (Robin UE MMT 4/5 except left shoulder flexion which is 4 -/5.) - Coordination Appears within normal limits for therapeutic activities - Bed Mobility Independent - Transfers Independent - Balance Balance Sitting: Good Balance Standing: Fair - Sensation Intact - Gait Detail (Pt Ind with ambulating long distances with 4 wheeled walker using oxygen.) - ADL's/IADL's Detail (Pt is Ind with showering, dressing, grooming/hygiene although she requires supervision due to impulsivity/safety.) Therapy Assessment - Therapy Assessment Detail (Pt requires supervision for safety, otherwise she is Ind with ADLs. Pt becomes very short of breath and requires cueing for breathing techniques to keep oxygen sats in the acceptable range with activity.) Problem List - Problem List Physical Therapy Problem List: Detail (1) Decreased O2 sat. levels with physical activity. 2) Decreased LE strength. 3) Decreased balance. 4) Decreased ability to complete prolonged physical activity.) Occupational Therapy Problem List: Detail (1. Decreased overall endurance needed for safe return home 2. Decreased UE strength needed for IADLs.) Goals - Goals Physical Therapy Goals: 1) The patient will be independent with all transfers. 2) The patient will ambulate with or without assistive device distances of 100 feet with minimal drop in O2 sat. level. 3) Increase LE strength 1/3 muscle grade. 4) The patient will tolerate 20 to 25 minutes of physicla activity with 1 to 2 rest periods. 5) Improve the patient's balance as measured by the Tinetti Balance Assessment Tool by 2 to 3 points. Occupational Therapy Goals: Goals met: 1. Pt will participate in UE strengthening and overall endurance activities to improve Ind and safety with IADLs. Prognosis - Prognosis Moderate Plan - Plan Physical Therapy Plan: PT 1 -2 times a day for LE strengthening and balance exercises, gait training, transfer training and breathing exercises. Occupational Therapy Plan: Pt discharged on 01/20/17 to rat exterminator care with hospice services available.
--- NOTE | 2017-01-23 08:19 | RADIOLOGY REPORT ---
EXAM: LUMBAR SPINE, TWO VIEWS HISTORY: LOW BACK PAIN AFTER A FALL THIS MORNING. TECHNIQUE: AP and lateral views of the lumbar spine were obtained. Comparison: Lumbar spine series 01/19/17. Encounter: Initial. FINDINGS: Compression fracture of the superior end plate of L1 appearing unchanged from yesterday. The remainder of the lumbar spine appears essentially unchanged as well. Mild thoracolumbar curve to the right as before. Some degenerative change in the lower lumbar facets. Surgical clips right upper quadrant of the abdomen as before. Some vascular calcification again noted. IMPRESSION: SOME COMPRESSION OF THE SUPERIOR END PLATE OF THE BODY OF L1 APPEARING ESSENTIALLY UNCHANGED FROM YESTERDAY. NO SIGNIFICANT CHANGE IDENTIFIED FROM YESTERDAY. JOB NUMBER: [id number] MTDD
--- NOTE | 2017-01-23 13:00 | Rehab Discharge Summary ---
Patient Information - Patient Information Diagnosis: deconditioning due to COPD exacerbation Ordered Treatment: PT Evaluate and Treat Surgery: No History: Detail (Pt admitted on 01/12/17 to swing bed from [facility].) Past Medical/Surgical Hx: PAST MEDICAL/SURGICAL HISTORY Past Surgical History hysterectomy gallbladder stents in subclavian PMH - Respiratory Hx Respiratory Disorders Yes Hx Bronchitis Yes Hx Chronic Obstructive Yes Pulmonary Disease (COPD) Comment: pulmonary fibrosis PMH - Cardiovascular Hx Cardiovascular Disorders Yes Hx Cardiac Catheterization Yes Hx Chest Pain Yes Hx Congestive Heart Failure Yes Hx Heart Attack Yes: 2 STENTS Hx Transient Ischemic Attacks Yes (TIA) PMH - Neuro Hx Neurological Disorders Yes Hx Dizziness Yes Hx Neuropathy Yes: diabetic neuropathy in feet and hands Hx Seizures Yes Hx Transient Ischemic Attacks Yes (TIA) PMH - GI Hx Gastrointestinal Disorders Yes Hx Gastroesophageal Reflux Yes Hx Weight Loss/Weight Gain Yes: loss 12# past month Comment: Barretts esophagus PMH - Hx Genitourinary Disorders Yes Comment: bladder sling PMH - Endocrine Hx Endocrine Disorders Yes Hx Diabetes Yes Hx Thyroid Disease Yes: hypo PMH - Musculoskeletal Hx Musculoskeletal Disorders Yes Hx Fibromyalgia Yes Hx Gout Yes PMH - Psych Hx Psychiatric Problems Yes Hx Anxiety Yes Hx Depression Yes Comment: Bipolar PMH - Hematology/Oncology Hx Hematology/Oncology No Disorders Premorbid Status: Detail (Pt lives alone in a 1st floor apartment, no steps to enter. She has a tub/shower combination with a seat and hand held shower, no grab bar. She usually sits to shower. She has a standard height toilet without grab bars. Prior to admission she ambulated without an assistive device. She has a person come to her house 3 x per week for house work, laundry and meals. She is Ind with preparing frozen meals. She has a 4 wheeled walker.) Social History: Detail (Pt has 2 daughers, 1 lives locally ([place]).) Precautions: Chicken, Fall, Other (Droplet precautions) Subjective Information - Subjective Information Per Patient (The patient continues to complain of lower back pain but states " it feels good to move.") Objective Data - Mental Status Patient Orientation: Oriented x3 - Visual Perception Appears within normal limits for therapeutic activities - ROM Within normal limits - Strength/Tone Not within normal limits (The patient's LE strength was generally 4- to 4/5.) - Bed Mobility Independent - Transfers Independent (The patient is supervision with toilet transfer and tub transfer, supervision is required due to 2 falls during inpatient stay.) - Balance Balance Sitting: Good Balance Standing: Fair (The patient's balance using the Tinetti Balance Assessment Tool remained which is the moderate for risk falling category.) - Gait Detail (The patient ambulates with 4 wheeled walker distances of 300 feet plus with 4 L of O2 independently. The patient's O2 sat. level decreased to the 80' s but returned to the 90's with cueing for pursed lip breathing.) Therapy Assessment - Therapy Assessment Detail (The patient had 2 episodes of falling on the nursing floor. The patient 's physical activity was limited after her first fall due to back pain. The patient frequently ambulated without device despite recommmendations that she use a walker. The patient's independence with transfers and tolerance for prolonged physical activity improved and LE strength improved 1/3 muscle grade.) Problem List - Problem List Physical Therapy Problem List: Detail (1) Decreased O2 sat. levels with physical activity. 2) Decreased LE strength. 3) Decreased balance. 4) Decreased ability to complete prolonged physical activity.) Occupational Therapy Problem List: Detail (1. Decreased overall endurance needed for safe return home 2. Decreased UE strength needed for IADLs.) Goals - Goals Physical Therapy Goals: GOALS MET: 1) The patient will be independent with all transfers. 2) The patient will ambulate with or without assistive device distances of 100 feet with minimal drop in O2 sat. level. 3) Increase LE strength 1/3 muscle grade. 4) The patient will tolerate 20 to 25 minutes of physicla activity with 1 to 2 rest periods. GOALS NOT MET: 5) Improve the patient's balance as measured by the Tinetti Balance Assessment Tool by 2 to 3 points. Occupational Therapy Goals: Goals met: 1. Pt will participate in UE strengthening and overall endurance activities to improve Ind and safety with IADLs. Plan - Plan Physical Therapy Plan: Patient was discharged from [facility] to extermination inspector facility and hospice care. Occupational Therapy Plan: Pt discharged on 01/20/17 to retirement care with hospice services available.
== END 2017-01-20 16:05 | disposition hospice, inpatient (51) | DRG 948 ==
LOC: MEDSURG 15:50
PROVIDERS: ADMIT Family Medicine; ATTEND Family Medicine
DX: R53.1 Weakness (principal); I50.30 Unspecified diastolic (congestive) heart failure; G45.8 Other transient cerebral ischemic attacks and related syndromes; E11.9 Type 2 diabetes mellitus without complications; Z79.4 Long term (current) use of insulin; M54.9 Dorsalgia, unspecified; W19.XXXA Unspecified fall, initial encounter; J44.9 Chronic obstructive pulmonary disease, unspecified; Z78.9 Other specified health status; J84.112 Idiopathic pulmonary fibrosis
CPT/HCPCS: 36416; 72100; 80048; 82948; 94760; 94761; 97110; 97165; 97530; 99306; 99309; 99316; J7512